=== PATIENT | male | born 1980 | race Caucasian/White ===

== ENCOUNTER 2017-08-29 15:15 | Emergency (ER) | payer BC, OTHER ==
--- OUTSIDE RECORDS SUMMARY | 2017-08-29 15:17 | XMS REPORT | Summary of Care ---
:1980 Author Name Melissa Gutierrez Address Unavailable Unavailable , Care Team Providers Name Role Phone Melissa Gutierrez Unavailable Unavailable SHANNON BAUMAN M.D. Unavailable Unavailable ANN CHRIS MD Unavailable Unavailable Unavailable Unavailable Unavailable Functional Status Name Dates Details Functional status health issues are not documented Status: Name Dates Details Cognitive status health issues are not documented Status: Problems Name Dates Details Closed posterior dislocation of right hip, initial encounter (835.01, S73.014A ) Status: Active Fracture of mandible (802.20, S02.609A) Status: Active Sprain of medial collateral ligament of right knee, initial encounter (844.1, S83.411A) Status: Active Memory problem (780.93, R41.3) Status: Active Medications Name Dates Details Gabapentin 300 MG/6ML Oral Solution Refills: 0 Start : 20-Apr-2017 Active 6 ML Cup TraMADol HCl - 50 MG Oral Tablet Refills: 0 Start : 20-Apr-2017 Active Naproxen 500 MG Oral Tablet Refills: 0 Start : 20-Apr-2017 Active MiraLax Oral Packet Refills: 0 Start : 20-Apr-2017 Active Enoxaparin Sodium 40 MG/0.4ML Subcutaneous Solution Refills: 0 Start : 20-Apr-2017 Active 0.4 ML Syringe BuPROPion HCl - 100 MG Oral Tablet Refills: 0 Active Acetaminophen-Codeine #3 300-30 MG Oral Tablet Refills: 0 Start : 16-May-2017 Active Donepezil HCl - 5 MG Oral Tablet TAKE 1 TABLET AT BEDTIME. Quantity: 60 Refills: 1 SHANNON BAUMAN M.D. Start : 16-May-2017 Active Allergies and Adverse Reactions Name Dates Details No Known Drug Allergies (Allergy) Status: Active Past Medical History Name Dates Details History of kidney stones (V13.01, Z87.442) Status: Resolved Procedures Procedure Dates Details Procedures not documented Immunization Name Dates Details Immunizations not documented Family History Name Dates Details Family history of diabetes mellitus (V18.0, Z83.3) Status: Active Family history of hypertension (V17.49, Z82.49) Status: Active Name Dates Details Family history of diabetes mellitus (V18.0, Z83.3) Status: Active Family history of hypertension (V17.49, Z82.49) Status: Active Social History Name Dates Details - Status: Name Dates Details Former smoker Never smoker Vital Signs Date Test Result Details No Known Vitals to report Results Date Description Value Details [id number] [U] XRAY PELVIS MIN 3 VWS [id number] XR PELVIS MIN 3 VWS Images acquired, not reported on this accession number. Plan of Care Name Dates Details Planned Observations Planned Goals not documented Planned Encounters Appointment; VIPIN DOSHI, PHD On: 28-Aug-2017 8:30 Appointment; CONNIE LOREDO M.D. On: 19-Oct-2017 10:00 Instructions Name Dates Details Instructions not documented Encounters Appointment; CANDIDO WARREN P.A. On: 20-Apr-2017 10:00 Encounter Diagnosis: Problem not documented Appointment; CONNIE LOREDO M.D. On: 20-Apr-2017 11:45 Encounter Diagnosis: Problem not documented Appointment; TREVA SANCHEZ M.D. On: 24-Apr-2017 10:10 Encounter Diagnosis: Problem not documented Appointment; CARRIE CARLOS M.D. On: 25-Apr-2017 14:15 Encounter Diagnosis: Problem not documented Appointment; TREVA SANCHEZ M.D. On: 01-May-2017 9:50 Encounter Diagnosis: Problem not documented Appointment; TREVA SANCHEZ M.D. On: 08-May-2017 9:50 Encounter Diagnosis: Problem not documented Appointment; TREVA SANCHEZ M.D. On: 10-May-2017 13:00 Encounter Diagnosis: Problem not documented Appointment; MARY MONAHAN M.D. On: 16-May-2017 13:00 Encounter Diagnosis: Problem not documented Appointment; CARRIE CARLOS M.D. On: 23-May-2017 9:45 Encounter Diagnosis: Problem not documented Appointment; TREVA SANCHEZ M.D. On: 29-May-2017 10:30 Encounter Diagnosis: Problem not documented Appointment; ELODIA HERNANDES PJacinta On: 01-Jun-2017 9:00 Encounter Diagnosis: Problem not documented Appointment; ELODIA HERNANDES P.A. On: 27-Jul-2017 9:00 Encounter Diagnosis: Problem not documented
[2017-08-29] MEDS ORDERED: BUPIVACAINE 0.5% PF 10 ML VIAL ONE (15:55)
[2017-08-29] MEDS ORDERED: WATER FOR INJ,STERILE 10 ML ONE (16:16)
[2017-08-29] MEDS ORDERED: CEFAZOLIN SODIUM 1 GM/VIAL ONE (16:16)
[2017-08-29] MEDS ORDERED: CEFAZOLIN/SWI 1gm 1 GM/10 ML SYR ONE (16:27)
[2017-08-29 16:34] LABS: Absolute Lymphocytes (CBC) 2.4 K/uL (0.7-4.9); Absolute Monocytes 0.6 K/uL (0.1-1.3); Absolute Neutrophil 4.8 K/uL (1.8-8.0); Basophils % 0.7 % (0-1.3); Lymphocytes % 29.6 % (15.3-44.8); MCH 29.4 pg (27.0-35.0); MCV 88.1 fL (80-100); MPV 8.6 fL (7.6-11.3); Monocytes % 6.8 % (3.3-12.3); RBC Red Blood Cell Count 4.99 M/uL (4.33-5.43)
[2017-08-29 16:43] LABS: Potassium 3.8 mEq/L (3.6-5.0)
[2017-08-29] MEDS ORDERED: FENTANYL CITR 100 MCG/2 ML ONE ×2 (16:43→18:02)
--- NOTE | 2017-08-29 16:43 | EDPHYS ---
Physician Documentation [facility] Name: Kamlesh Fitzpatrick Age: 37 yrs Sex: Male : 1980 Arrival Date: 08/29/2017 Time: 15:20 Bed 25 Private MD: ED Physician Solomon Bass HPI: 08/29 15:54 This 37 yrs old Male presents to ER via Ambulatory with complaints of Cut off jr8 tip of finger. 15:54 The patient or guardian reports injury, a laceration. The complaints affect the right jr8 finger tip. Context: The problem was sustained at home. Onset: The symptoms/episode began/occurred acutely, today. Modifying factors: The symptoms are alleviated by nothing, the symptoms are aggravated by movement. Associated signs and symptoms: The patient has no apparent associated signs or symptoms. Severity of symptoms: At their worst the symptoms were moderate, in the emergency department the symptoms are unchanged. The patient has not experienced similar symptoms in the past. The patient has not recently seen a physician. Patient stated that he was using table saw and thinks it malfunctioned. Stated that he was cutting wood and next thing he noticed was a piece of wood flying up and then his finger tip cut off. Patient came to ED soon after incident . 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 - Social history:: Smoking status: Patient/guardian denies using tobacco. ROS: 15:54 Eyes: Negative for injury, pain, redness, and discharge, ENT: Negative for injury, jr8 pain, and discharge, Neck: Negative for injury, pain, and swelling, Cardiovascular: Negative for chest pain, palpitations, and edema, Respiratory: Negative for shortness of breath, cough, wheezing, and pleuritic chest pain, Abdomen/GI: Negative for abdominal pain, nausea, vomiting, diarrhea, and constipation, Back: Negative for injury and pain, Skin: Negative for injury, rash, and discoloration, Neuro: Negative for headache, weakness, numbness, tingling, and seizure. 15:54 MS/extremity: Positive for injury or acute deformity, laceration, pain, of the right hand. Exam: 15:54 Eyes: Pupils equal round and reactive to light, extra-ocular motions intact. Lids and jr8 lashes normal. Conjunctiva and sclera are non-icteric and not injected. Cornea within normal limits. Periorbital areas with no swelling, redness, or edema. ENT: Nares patent. No nasal discharge, no septal abnormalities noted. Tympanic membranes are normal and external auditory canals are clear. Oropharynx with no redness, swelling, or masses, exudates, or evidence of obstruction, uvula midline. Mucous membranes moist. Neck: Trachea midline, no thyromegaly or masses palpated, and no cervical lymphadenopathy. Supple, full range of motion without nuchal rigidity, or vertebral point tenderness. No Meningismus. Cardiovascular: Regular rate and rhythm with a normal S1 and S2. No gallops, murmurs, or rubs. Normal PMI, no JVD. No pulse deficits. Respiratory: Lungs have equal breath sounds bilaterally, clear to auscultation and percussion. No rales, rhonchi or wheezes noted. No increased work of breathing, no retractions or nasal flaring. Abdomen/GI: Soft, non-tender, with normal bowel sounds. No distension or tympany. No guarding or rebound. No evidence of tenderness throughout. Back: No spinal tenderness. No costovertebral tenderness. Full range of motion. Skin: Warm, dry with normal turgor. Normal color with no rashes, no lesions, and no evidence of cellulitis. Neuro: Awake and alert, GCS 15, oriented to person, place, time, and situation. Cranial nerves II-XII grossly intact. Motor strength 5/5 in all extremities. Sensory grossly intact. Cerebellar exam normal. Normal gait. 15:54 Musculoskeletal/extremity: Extremities: grossly normal except: noted in the right hand: Patient has near complete amputation of distal aspect of the right index finger including nail bed. Bleeding controlled. Intact aspect of finger does have partial bone exposed along with soft tissue exposure, ROM: intact in all extremities, Circulation is intact in all extremities. Sensation intact. Vital Signs: 15:23 BP 107 / 69; Pulse 69; Resp 18; Temp 99.2; Pulse Ox 100% on R/A; Pain 8/10; hb 16:03 Weight 90.72 kg; bd 17:31 BP 133 / 84; Pulse 88; Resp 18; Pulse Ox 99% on R/A; kr2 MDM: 15:29 Patient medically screened. jr8 15:54 Data reviewed: vital signs, nurses notes, lab test result(s). Data interpreted: Pulse jr8 oximetry: on room air is 100 %. Interpretation: normal. ED course: Dr. Olivera consulted. Unavailable to help with finger injury today. Will consult [facility] to see if they will be available to help . 16:42 ED course: Dr. Pham from [facility] accepted patient . jr8 16:43 ED course: Patient up to date on Tetanus . jr8 08/29 15:54 Order name: CBC with Diff jr8 08/29 15:54 Order name: Basic Metabolic Panel jr8 08/29 16:37 Order name: CBC with Automated Diff; Complete Time: 16:43 EDMS 08/29 16:43 Order name: Basic Metabolic Panel; Complete Time: 16:47 EDMS 08/29 15:53 Order name: IV; Complete Time: 16:30 jr8 Administered Medications: 15:53 CANCELLED (Physician Discretion): Ancef 1 grams IM once jr8 16:30 Drug: Ancef 1 grams Route: IVPB; Site: left antecubital; kr2 16:45 Follow up: Response: No adverse reaction; IV Status: Completed infusion kr2 16:31 Drug: fentaNYL (PF) 75 mcg Route: IVP; Site: left antecubital; kr2 17:00 Follow up: Response: No adverse reaction; Pain is decreased kr2 17:48 Drug: fentaNYL (PF) 75 mcg Route: IVP; Site: left antecubital; kr2 17:58 Follow up: Response: No adverse reaction; Pain is decreased kr2 17:58 Drug: Zofran 4 mg Route: IVP; Site: left antecubital; kr2 17:58 Follow up: Response: No adverse reaction kr2 Disposition: 18:39 Co-signature as Attending Physician, Solomon Bass MD. rn Disposition: 08/29/17 16:43 Transfer ordered to [facility]. 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 - Reason for transfer: Higher level of care. - Accepting physician is Dr. Pham. - Condition is Stable. - Problem is new. - Symptoms have improved. Signatures: Dispatcher [employer] EDSolomon Freeman MD MD rn Roszak, Josh, PA PA jr8 Adrianna Mcdermott RN RN Mel Gonzalez RN RN kr2 Corrections: (The following items were deleted from the chart) 15:53 15:53 Ancef 1 grams IM once ordered. jr8 jr8
--- NOTE | 2017-08-29 16:43 | ER ---
Nurse's Notes [facility] Emergency Department Name: Kamlesh Fitzpatrick Age: 37 yrs Sex: Male : 1980 Arrival Date: 08/29/2017 Time: 15:20 Bed 25 Private MD: Diagnosis: Near Amputation right index finger Presentation: 08/29 15:24 Presenting complaint: Patient states: Partial amputation of right index finger with hb table saw approx 20 mins ago. Transition of care: patient was not received from another setting of care. Onset of symptoms was August 29, 2017. Care prior to arrival: None. 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 - Social history:: Smoking status: Patient/guardian denies using tobacco. Screenin:33 Abuse screen: Denies threats or abuse. Denies injuries from another. Nutritional kr2 screening: No deficits noted. Tuberculosis screening: No symptoms or risk factors identified. Fall Risk None identified. Assessment: 16:00 General: Appears in no apparent distress. uncomfortable, well developed, well kr2 nourished, Behavior is calm, cooperative, appropriate for age. Pain: Complains of pain in dorsal aspect of distal phalanx of right index finger Pain radiates to right hand Pain currently is 8 out of 10 on a pain scale. Quality of pain is described as burning, sharp, throbbing, Is continuous, Alleviated by nothing. Neuro: Level of Consciousness is awake, alert, obeys commands, Oriented to person, place, time, situation, Appropriate for age. Cardiovascular: Capillary refill < 3 seconds in bilateral fingers Patient's skin is warm and dry. Respiratory: Airway is patent Respiratory effort is even, unlabored, Respiratory pattern is regular, symmetrical. GI: Abdomen is flat, non-distended. : No signs and/or symptoms were reported regarding the genitourinary system. EENT: No signs and/or symptoms were reported regarding the EENT system. Derm: Skin is healthy with good turgor, Skin is pink, warm \T\ dry. Musculoskeletal: Amputation of distal tip of right index finger hanging by a thin strip of skin. Injury Description: Amputation. 17:32 Reassessment: Patient appears in no apparent distress at this time. Patient and/or kr2 family updated on plan of care and expected duration. Pain level reassessed. Patient is alert, oriented x 3, equal unlabored respirations, skin warm/dry/pink. Wet to dry dressing in place, small amount of bleeding. Report called to [facility] at [facility]. 17:59 Reassessment: Patient appears in no apparent distress at this time. Patient and/or kr2 family updated on plan of care and expected duration. Pain level reassessed. Patient is alert, oriented x 3, equal unlabored respirations, skin warm/dry/pink. Patient states he gets nauseated when riding in a vehicle where he can't see out . Given Zofran for ambulance ride to [facility]. Vital Signs: 15:23 BP 107 / 69; Pulse 69; Resp 18; Temp 99.2; Pulse Ox 100% on R/A; Pain 8/10; hb 16:03 Weight 90.72 kg; bd 17:31 BP 133 / 84; Pulse 88; Resp 18; Pulse Ox 99% on R/A; kr2 ED Course: 15:20 Patient arrived in ED. mr 15:25 Triage completed. hb 15:25 Arm band placed on left wrist. hb 15:29 Travis Tracy PA is PHCP. jr8 15:29 Solomon Bass MD is Attending Physician. jr8 15:53 Mel Bolton, DANIEL is Primary Nurse. kr2 16:00 Patient has correct armband on for positive identification. Placed in gown. Bed in low kr2 position. Call light in reach. Side rails up X 1. Adult w/ patient. Pulse ox on. NIBP on. 16:15 Inserted saline lock: 22 gauge in left antecubital area, using aseptic technique. Blood kr2 collected. 18:00 No provider procedures requiring assistance completed. Patient transferred, IV remains kr2 in place. Administered Medications: 15:53 CANCELLED (Physician Discretion): Ancef 1 grams IM once jr8 16:30 Drug: Ancef 1 grams Route: IVPB; Site: left antecubital; kr2 16:45 Follow up: Response: No adverse reaction; IV Status: Completed infusion kr2 16:31 Drug: fentaNYL (PF) 75 mcg Route: IVP; Site: left antecubital; kr2 17:00 Follow up: Response: No adverse reaction; Pain is decreased kr2 17:48 Drug: fentaNYL (PF) 75 mcg Route: IVP; Site: left antecubital; kr2 17:58 Follow up: Response: No adverse reaction; Pain is decreased kr2 17:58 Drug: Zofran 4 mg Route: IVP; Site: left antecubital; kr2 17:58 Follow up: Response: No adverse reaction kr2 Outcome: 16:43 ER care complete, transfer ordered by . jr8 18:01 Transferred by ground EMS to [facility], Transfer form completed. kr2 18:01 Condition: good 18:01 Patient left the ED. kr2 Signatures: Ana Maria Choudhury Maria mr Travis Tracy PA PA jr8 Adrianna Mcdermott RN RN Mel Bolton RN RN kr2 Corrections: (The following items were deleted from the chart) 15:26 15:24 Acuity: JEANNINE 3 hb hb
[2017-08-29] MEDS ORDERED: ONDANSETRON 4 MG/2 ML VIAL ONE (18:14)
== END 2017-08-29 18:01 | disposition short-term general hospital (02) ==
LOC: ER 15:15
DX: S68.620A Partial traumatic transphalangeal amputation of right index finger, initial encounter (principal); W31.2XXA Contact with powered woodworking and forming machines, initial encounter; Y93.89 Activity, other specified; Y92.009 Unspecified place in unspecified non-institutional (private) residence as the place of occurrence of the external cause
CPT/HCPCS: 36415; 80048; 85025; 96374; 96375; 99285; J0690; J2405; J3010

== ENCOUNTER 2019-02-20 23:03 | Emergency (ER) | payer BC ==
--- OUTSIDE RECORDS SUMMARY | 2019-02-20 23:09 | XMS REPORT | Continuity of Care Document ---
:1980 Author Organization [facility] Information [employer] Care Team Providers Name Role Phone [facility] Information [employer] Unavailable Unavailable Problems Problem Status Onset Classification Date Comments Source Date Reported Partial traumatic 09/08/19 12/05/2017 [facility] am[facility] of Center right index finger, initial encounter Partial traumatic 08/30/19 12/05/2017 [facility] transphalangeal 18 Medical amputation of Center right index finger, subsequent encounter RIGHT INDEX FINGER Active 08/30/[address] MANDIBLE FX Active 04/24/[address] ROSHAN BILLING Active 04/04/20 [facility] #[id number] [place] [address] MANDIBLE FX, HIP Active 04/04/20 [facility] FX [address] [place] [address] Anxiety (finding) Active Problem 12/05/2017 [facility], MELANIA Fischer Gastric ulcer Resolved Problem 12/05/2017 [facility] (disorder) Neuro,[facility] MELANIA Fischer Steatosis of liver Resolved [facility] OPID [place] 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 Neuro, (disorder) [facility] MELANIA Fischer Fracture of bone Active Problem 12/05/2017 spinal fx no brace at this time [facility] (disorder) fx jaw and ribs, dislocated hip Neuro,[facility], MELANIA Fischer Kidney stone Resolved Problem 12/05/2017 [facility] Neuralgia Active Problem 12/05/2017 right leg [facility] (disorder) Neuro,[facility] MELANIA Fischer Contact with 12/05/2017 [facility] [employer]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 nicotine Medical dependence Center FRACTURE OF ANGLE Active [facility] OF RIGHT MANDIBLE, Medical 7TH Center Medications Medication Details Route Status Patient Ordering Order Source Instructions Provider Date Acetaminophen 300 1 tab, PO, No Longer 08/30/ [facility] MG / Codeine Q6H, PRN Active 2018 Medical Phosphate 30 MG Pain, X 3 Center Oral Tablet day, # 12 [Tylenol with tab, 0 Codeine #3] Refill(s) Cephalexin 500 MG 500 mg=1 cap, No Longer [facility] Oral Capsule PO, QID, X 7 Active 2018 Medical [Keflex] day, # 28 Center cap, 0 Refill(s) Ancef + sterile 2 gm, Route: Inactive [facility] water 20 mL IVPB, ONCE, 2017 Medical Dosing Weight Center 91.818, kg, Priority: STAT, Start date: 08/29/17 23:14:00 CDT, Stop date: 08/29/17 23:14:00 CDT, ABX Indication: Bone/Joint InfectionNote s: (Same As: Ancef, Kefzol) MEDICATION WASTE Product Size: 1000 mg Product Wasted: ___ mg Ancef 1 gm, Route: Inactive [facility] IVPB, ONCE, 2017 Medical Dosing Weight Center 91.818, kg, Priority: STAT, Start date: 08/29/17 23:14:00 CDT, Stop date: 08/29/17 23:14:00 CDT, ABX Indication: Bone/Joint Infection Lidocaine 100 mg, 10 No Longer [facility] Hydrochloride 10 mL, Route: Active 2017 Medical MG/ML Injectable INTRADERM, [place] Solution Drug Form: INJ, Dosing Weight 91.818, kg, ONCE, STAT, Start date: 08/29/17 20:59:00 CDT, Stop date: 08/29/17 20:59:00 CDTNotes: (Same as: Xylocaine) Ancef 1 gm, Route: Inactive [facility] IVPB, ONCE, 2017 Medical Dosing Weight Center 91.818, kg, Priority: STAT, Start date: 08/29/17 19:42:00 CDT, Stop date: 08/29/17 19:42:00 CDT, ABX Indication: Bone/Joint Infection Acetaminophen 325 1 tab, Route: Inactive [facility] MG / Hydrocodone PO, Drug 2018 Medical Bitartrate 5 MG Form: TAB, Center Oral Tablet Dosing Weight 91.818, kg, ONCE, STAT, Start date: 08/29/17 19:29:00 CDT, Stop date: 08/29/17 19:29:00 CDT propofol (ANES) Route: IV, Inactive [facility] Drug form: 2017 Medical INJ, ONCE, Center Stop date: 05/10/17 12:21:00 SILK BLOCKER fentaNYL (ANES) Route: IV, Inactive [facility] Drug form: 2017 Medical INJ, ONCE, Center Stop date: 05/10/17 12:21:00 SILK BLOCKER midazolam (ANES) Route: IV, Inactive [facility] Drug form: 2017 Medical SOLN, ONCE, Center Stop date: 05/10/17 12:21:00 SILK BLOCKER lidocaine (ANES) Route: IV, Inactive [facility] Drug form: 2017 Medical INJ, ONCE, Center Stop date: 05/10/17 12:21:00 SILK BLOCKER Lactated Ringers Route: IV, Inactive [facility] Injection IV Total Volume: 2017 Medical (ANES) 1000 mL 1,000, Start Center date: 05/10/17 11:35:00 SILK BLOCKER, Stop date: 05/10/17 12:35:00 SILK BLOCKER Tramadol 50 mg, PO, Active [place] Q4-6H, PRN 2017 Medical Pain, # 20 Center tab, 0 Refill(s) Peridex 0.12% 0.018 gm=15 Active [facility] topical liquid mL, S&SPIT, 2017 Medical TID, # 450 Center mL, 0 Refill(s) buPROPion 100 mg 100 mg=1 tab, Active [facility] oral tablet PO, Q8H, 2017 Medical crush, # 90 Center tab, 0 Refill(s) enoxaparin 40 40 mg=0.4 mL, Active [place] mg/0.4 mL SUB-Q, Q12H, 2017 Medical subcutaneous X 16 day, # Center solution 32 ea, 0 Refill(s) tramadol 50 mg 50 mg=1 tab, Active [place] oral tablet PO, Q6H, PRN 2017 Medical Pain Score Center 4-6, not to exceed 400 mg/day, crush, X 7 day, # 28 tab, 0 Refill(s) gabapentin 250 300 mg=6 mL, Active [place] mg/5 mL oral PO, Q8Hnow, 2017 Medical solution if liquid Center unavailable please change to tabs 300 mg q8h and crush them, # 540 mL, 0 Refill(s) docusate sodium 100 mg=10 mL, Active [place] 150 mg/15 mL oral PO, Q12H, 2017 Medical liquid with plenty Center of water, # 140 mL, 0 Refill(s) naproxen 500 mg 500 mg=1 tab, Active [facility] oral tablet NG, Q12H, PRN 2017 Medical Pain 1-3/Temp Center > 100.4 F, with food, crush, X 7 day, # 14 tab, 0 Refill(s) polyethylene 17 gm, PO, Active [facility] glycol 3350 oral Q12H, 2017 Medical powder for dissolve in Center reconstitution water or juice, hold for diarrhea, X 7 day, # 12 ea, 0 Refill(s) oxyCODONE 5 mg/5 5 mg=5 mL, Active [place] mL oral solution PO, Q4H, PRN 2017 Medical Pain Score Center 4-6, X 7 day, # 210 mL, 0 Refill(s) Peridex 0.12% 15 ml, Route: No Longer [facility] topical liquid S&SPIT, TID, Active 2016 Medical Drug form: [place] LIQ, Start date: 04/14/17 9:00:00 CDT, Duration: 30 day, Stop date: 05/13/17 17:00:00 CSTNotes: (Same As: Peridex) gabapentin 300 mg, 6 mL, No Longer [place] Route: PO, Active 2016 Medical Drug form: [place] SOLN, Q8Hnow, Dosing Weight 106.818, kg, Start date: 04/14/17 3:00:00 CDT, Stop date: 05/13/17 19:00:00 CSTNotes: (Same as: Neurontin) oxyCODONE 5 mg/5 5 mg, 5 mL, No Longer [place] mL oral solution Route: PO, Active 2016 Medical Drug form: [place] LIQ, Q4H, Dosing Weight 106.818, kg, PRN Pain Score 4-6, Start date: 04/14/17 2:50:00 CDT, Stop date: 05/14/17 2:49:00 CSTNotes: (Same as: 'Roxicodone) tramadol 50 mg, 1 tab, No Longer [place] Route: PO, Active 2016 Medical Drug form: Center TAB, Q6H, Dosing Weight 106.818, kg, PRN Pain Score 4-6, Start date: 04/14/17 2:50:00 CDT, Duration: 30 day, Stop date: 05/14/17 2:49:00 CSTNotes: Not to exceed 400mg/day. (Same As: Ultram) Naprosyn 500 mg, 1 No Longer [place] tab, Route: Active 2016 [facility], Drug Center form: TAB, Q12H, PRN Pain 1-3/Temp > 100.4 F, Start date: 04/13/17 8:39:00 CDT, Duration: 30 day, Stop date: 05/13/17 8:38:00 CSTNotes: (Same as: Naprosyn) Take with food. Roxicodone 5 mg, 1 tab, No Longer [place] Route: NG, Active 2016 Medical Drug form: Center TAB, Q4H, PRN Pain Score 6-10, Start date: 04/12/17 9:22:00 CDT, Duration: 30 day, Stop date: 05/12/17 9:21:00 CSTNotes: (Same as: Roxicodone) oxyCODONE 5 mg/5 5 mg, 5 mL, Inactive [place] mL oral solution Route: PO, 2017 Medical Q4H, Dosing Center Weight 85, kg, PRN Pain Score 1-5, Start date: 04/12/17 9:17:00 CDT, Duration: 30 day, Stop date: 05/12/17 9:16:00 SILK BLOCKER [place] Glycerin 1 supp, No Longer [place] Suppositories Route: VA, Active 2016 Medical Adult Dosing Weight Center 85, kg, Daily, Start date: 04/12/17 9:00:00 CDT, Duration: 30 day, Stop date: 05/11/17 9:00:00 SILK BLOCKER Dulcolax Laxative 10 mg, 1 No Longer [place] supp, Route: Active [facility] form: SUPP, Daily, Start date: 04/11/17 10:00:00 CDT, Duration: 30 day, Stop date: 05/11/17 9:00:00 CSTNotes: (Same As: Dulcolax, Bisco-Lax) famotidine 20 mg 20 mg, 1 tab, Inactive [place] oral tablet Route: PO, 2016 Medical Drug form: [place] TAB, Q12H, Dosing Weight 85, kg, Start date: 04/11/17 9:00:00 CDT, Duration: 30 day, Stop date: 05/10/17 21:00:00 CSTNotes: (Same as: Pepcid) Zofran 4 mg, Route: No Longer [place] IV, ONCE, Active 2016 Medical Dosing Weight Center 85, kg, Start date: 04/10/17 23:58:00 CDT, Stop date: 04/10/17 23:58:00 CDT famotidine 20 mg, 2 mL, No Longer [place] Route: IVPB, Active 2016 Medical Drug form: Center INJ, Q12H, Dosing Weight 85, kg, Start date: 04/10/17 21:00:00 CDT, Duration: 30 day, Stop date: 05/10/17 9:00:00 CSTNotes: (Same as: Pepcid) Can be dilute in 5-10cc NS IVP: Slow IV push over at least 2 minutes. chlorhexidine 15 mL, Route: No Longer [place] topical 0.12% Swab Mouth, Active 2016 Medical liquid Q12H, Drug Center form: LIQ, Start date: 04/10/17 21:00:00 CDT, Duration: 30 day, Stop date: 05/10/17 9:00:00 CSTNotes: (Same As: Peridex) ocular lubricant 1 appl, No Longer [place] Route: BOTH Active 2016 Medical EYES, Q6H, [place] Drug form: OINT, Start date: 04/10/17 18:00:00 CDT, Duration: 30 day, Stop date: 05/10/17 12:00:00 CSTNotes: (Same as: Lacri-Lube, Duratears Naturale, Artificial Tears, and Tears Again ) ondansetron Route: IV, Inactive [facility] (ANES) Drug form: 2016 Medical INJ, ONCE, Center Stop date: 04/10/17 17:12:00 CDT chlorhexidine 15 mL, Route: No Longer [facility] topical 0.12% Swab Mouth, Active 2016 Medical liquid PRN, Drug Center form: LIQ, PRN Other -See Comment, Start date: 04/10/17 16:55:00 CDT, Duration: 30 day, Stop date: 05/10/17 15:54:00 CSTNotes: (Same As: Peridex) propofol INJ 1,000 mg, 100 No Longer [facility] 1,000 mg mL, Rate: Active 2016 [facility] Titrate, Happy [place] Start Dose: 5 microgram/kg/ min, Titration: 5 microgram/kg/ min every 15 min, Goal(s): MAP >65, Max Dose: 50 microgram/kg/ min, Route: IV, Dosing Weight 85 kg, Total Volume: 100, Start date: 04/10/17 16:52:00 CDT, Duratio...Not es: If Diprivan - change bottle & tubing every 12 hr Per state nursing law propofol can only be given by a nurse if patient is intubated or being intubated (unless the nurse is a TUBE BUILDER). Same as: Diprivan acetaminophen Route: IV, Inactive [facility] (ANES) Drug form: 2016 Medical INJ, ONCE, Center Stop date: 04/10/17 16:16:00 CDT albuterol (ANES) Route: Inactive [facility] INHALATION, 2016 Medical Drug form: [place] AERO/A, ONCE, Stop date: 04/10/17 14:34:00 CDT phenylephrine Route: IV, Inactive [facility] (ANES) Drug form: 2017 Medical INJ, ONCE, Center Stop date: 04/10/17 14:24:00 CDT dexamethasone Route: IV, Inactive [facility] (ANES) Drug form: 2017 Medical INJ, ONCE, Center Stop date: 04/10/17 14:04:00 CDT fentaNYL (ANE) Route: IV, Inactive [facility] Drug form: 2017 Medical INJ, ONCE, Center Stop date: 04/10/17 14:04:00 CDT rocuronium (ANES) Route: IV, Inactive [facility] Drug form: 2017 Medical INJ, ONCE, Center Stop date: 04/10/17 14:04:00 CDT propofol (ANES) Route: IV, Inactive [facility] Drug form: 2017 Medical INJ, ONCE, Center Stop date: 04/10/17 14:04:00 CDT lidocaine (ANES) Route: IV, Inactive [facility] Drug form: 2017 Medical INJ, ONCE, Center Stop date: 04/10/17 14:04:00 CDT clindamycin Route: IV, Inactive [facility] (ANES) Drug form: 2017 Medical INJ, ONCE, Center Stop date: 04/10/17 13:46:00 CDT nafcillin (ANES) Route: IV, Inactive [facility] Drug form: 2017 Medical INJ, ONCE, Center Stop date: 04/10/17 13:46:00 CDT midazolam (ANES) Route: IV, Inactive [facility] Drug form: 2017 Medical SOLN, ONCE, Center Stop date: 04/10/17 13:42:00 CDT dexmedetomidine Route: IV, Inactive [facility] (ANES) (ANES) Drug form: 2016 Medical INJ, Start Center date: 04/10/17 12:43:00 CDT, Stop date: 04/10/17 13:43:00 CDT LR 1000 mL INJ Route: IV, Inactive [facility] (ANES) Total Volume: 2016 Medical 1,000, Start Center date: 04/10/17 12:15:00 CDT, Stop date: 04/10/17 13:15:00 CDT methadone 5 mg, 1 tab, No Longer [place] Route: PO, Active 2016 Medical Drug form: Center TAB, Q8Hnow, Dosing Weight 85, kg, Start date: 04/09/17 17:13:00 CDT, Duration: 30 day, Stop date: 05/09/17 9:13:00 CSTNotes: (Same as: Dolophine) oxyCODONE 5 mg 5 mg, 1 tab, No Longer [place] oral tablet Route: PO, Active 2016 Medical Drug form: Center TAB, Q4H, kg, PRN Pain Score 7-10, , Start date: 04/09/17 17:12:00 CDT, Duration: 30 day, Stop date: 05/09/17 17:11:00 CSTNotes: (Same as: Roxicodone) nafcillin 1 gm, Route: Inactive [place] IVPB, Q4H, 2016 Medical Dosing Weight Center 85, kg, Start date: 04/09/17 12:00:00 CDT, Duration: 3 day, Stop date: 04/12/17 8:00:00 CDT nafcillin 1 gm, Route: No Longer [facility] IVPB, Drug Active 2016 Medical form: Center PDR/INJ, Q4H, Dosing Weight 85, kg, Priority: STAT, Start date: 04/09/17 10:37:00 CDT, Duration: 4 day, Stop date: 04/13/17 8:00:00 CDT melatonin 3 mg 3 mg, 1 tab, No Longer [place] oral tablet Route: PO, Active 2016 Medical Drug Form: [place] TAB, Dosing Weight 85, kg, Bedtime, STAT, Start date: 04/08/17 22:58:00 CDT, Duration: 30 day, Stop date: 05/08/17 21:00:00 CSTNotes: (Same as: Melatonin) levofloxacin 750 mg, 1 No Longer [facility] tab, Route: Active 2017 Medical PO, Drug Center form: TAB, [id number], Dosing Weight 85, kg, For CrCl > 49ml/min, Start date: 04/08/17 11:00:00 CDT, Duration: 7 day, Stop date: 04/14/17 11:00:00 CDT, ABX Indication: PneumoniaNote s: Do not give w/antacids, dairy pdt & minerals Take 1 hr before or 2 hr after dairy products nafcillin 1 gm, Route: Inactive [place] IVPB, Q4H, 2017 Medical Dosing Weight Center 85, kg, Priority: NOW, Start date: 04/08/17 8:41:00 CDT, Duration: 30 day, Stop date: 05/08/17 8:00:00 SILK BLOCKER tramadol 100 mg, 2 Inactive [place] tab, Route: 2017 Medical , Drug Center form: TAB, Q6H, Dosing Weight 85, kg, Start date: 04/07/17 12:00:00 CDT, Duration: 30 day, Stop date: 05/07/17 6:00:00 CSTNotes: Not to exceed 400mg/day. (Same As: Ultram) buPROPion 100 mg, 1 No Longer [place] tab, Route: Active 2016 [facility], Drug Center form: TAB, Q8H, Dosing Weight 85, kg, Start date: 04/07/17 10:09:00 CDT, Duration: 30 day, Stop date: 05/07/17 8:00:00 CSTNotes: (Same As: Wellbutrin) buPROPion 300 mg, Inactive [place] Route: PO, 2016 Medical Drug form: [place] ERTAB, Daily, Dosing Weight 85, kg, Start date: 04/07/17 9:49:00 CDT, Duration: 30 day, Stop date: 05/07/17 9:00:00 SILK BLOCKER citalopram 20 mg, 1 tab, No Longer [place] Route: NG, Active 2016 Medical Drug form: [place] TAB, Daily, Dosing Weight 85, kg, Start date: 04/07/17 9:49:00 CDT, Duration: 30 day, Stop date: 05/07/17 9:00:00 CSTNotes: (Same As: CeleXA) buPROPion 300 0 Refill(s) No Longer [place] mg/24 hours (XL) Active 2016 Medical oral tablet, [place] extended release citalopram 20 mg 0 Refill(s) Active [place] oral tablet 2017 Medical [place] bisacodyl 10 mg, 1 Inactive [place] supp, Route: 2017 [facility] form: SUPP, ONCE, Dosing Weight 85, kg, Start date: 04/07/17 9:22:00 CDT, Stop date: 04/07/17 9:22:00 CDTNotes: (Same As: Dulcolax, Bisco-Lax) vancomycin 1,500 mg, 250 No Longer [place] mL, Route: Active 2016 [facility] IVPB, Drug Center form: INJ, ABXQ6H, Dosing Weight 85, kg, Priority: STAT, Start date: 04/07/17 1:27:00 CDT, Duration: 7 day, Stop date: 04/13/17 20:00:00 CDT, ABX Indication: PneumoniaNote s: TIME CRITICAL MEDICATION Same as: Vancocin-NS (premixed) Infusion rate 2001 mg: infuse over 2.5 hours Naprosyn 500 mg, 1 No Longer [facility] tab, Route: Active 2016 [facility], Drug Center form: TAB, Q12H, Start date: 04/06/17 21:00:00 CDT, Duration: 30 day, Stop date: 05/06/17 9:00:00 CSTNotes: (Same as: Naprosyn) Take with food. vancomycin 2 gm, 500 mL, Inactive [place] Route: IV, 2016 Medical Drug form: Center SOLN, ONCE, Dosing Weight 85, kg, Priority: STAT, Start date: 04/06/17 18:04:00 CDT, Stop date: 04/06/17 18:04:00 CDT, ABX Indication: PneumoniaNote s: TIME CRITICAL MEDICATION Same as: Vancocin Infusion rate 2001 mg: infuse over 2.5 hours cefepime 1 gm, Route: No Longer [facility] IV, Drug Active 2016 Medical form: INJ, Center ABXQ6H, Dosing Weight 85, kg, Priority: STAT, Start date: 04/06/17 18:04:00 CDT, Duration: 7 day, Stop date: 04/13/17 12:04:00 CDT, ABX Indication: PneumoniaNote s: (Same As: Maxipime) MEDICATION WASTE Product Size: 1000 mg Product Wasted: ___ mg Neurontin 300 mg, 1 No Longer [facility] cap, Route: Active 2016 [facility], Drug Center form: CAP, Q8H, Start date: 04/06/17 16:00:00 CDT, Duration: 30 day, Stop date: 05/06/17 8:00:00 CSTNotes: (Same as: Neurontin) Versed 5 mg, 5 mL, Inactive [facility] Route: IVP, 2017 Medical Drug form: Center INJ, ONCALL, Dosing Weight 85, kg, Start date: 04/06/17 15:00:00 CDT, Duration: 1 day, Stop date: 04/07/17 14:59:00 CDTNotes: (Same as: Versed) MEDICATION WASTE Product Size: 5 mg Product Wasted: ___ mg fentaNYL 50 microgram, Inactive [facility] Route: IV, 2017 Medical ONCE, Dosing Center Weight 85, kg, Start date: 04/06/17 14:39:00 CDT, Stop date: 04/06/17 14:39:00 CDT midazolam 5 mg, Route: Inactive [facility] IV, ONCE, 2017 Medical Dosing Weight Center 85, kg, Priority: STAT, Start date: 04/06/17 14:23:00 CDT, Stop date: 04/06/17 14:23:00 CDT rocuronium 100 mg, 10 Inactive [facility] mL, Route: 2017 Medical IV, Drug Center form: INJ, ONCE, Dosing Weight 85, kg, Start date: 04/06/17 14:02:00 CDT, Stop date: 04/06/17 14:02:00 CDTNotes: (Same as: Zemeron) Omnipaque 70 mL, Route: Inactive [place] 350mg/ml IVP, Drug 2017 Medical Form: SOLN, Center Dosing Weight 85, kg, ONCALL, STAT, Start date: 04/06/17 11:32:00 CDT, Duration: 1 doses or times, Dose=2.2ml/kg , Max xzas=[id number] -- "To be infused by Radiology Staff ONLY" chlorhexidine 15 mL, Route: Inactive [facility] topical 0.12% Swab Mouth, 2017 Medical liquid Q12H, Drug Center form: LIQ, Start date: 04/06/17 9:00:00 CDT, Duration: 30 day, Stop date: 05/05/17 21:00:00 CSTNotes: (Same As: Peridex) ocular lubricant 1 appl, Inactive [place] Route: BOTH 2017 Medical EYES, Q6H, Center Drug form: OINT, Start date: 04/06/17 6:00:00 CDT, Duration: 30 day, Stop date: 05/06/17 0:00:00 CSTNotes: (Same as: Lacri-Lube, Duratears Naturale, Artificial Tears, and Tears Again ) fentaNYL 1,000 Inactive [place] 1000microgram/20m microgram, 20 2016 Medical l drip (pyxis) mL, Rate: Center 1,000 microgram Titrate, Start Dose: 50 microgram/hr, Titration: 25 microgram/kristen r every 15 minutes, Goal(s): -3, Max Dose: 300 microgram/hr, Route: IV, Dosing Weight 85 kg, Total Volume: 20, Start date: 04/06/17 0:43:00 CDT, Duration: 3... propofol INJ 1,000 mg, 100 No Longer [place] 1,000 mg mL, Rate: Active 2016 [facility] Titrate, [place] Start Dose: 5 microgram/kg/ min, Titration: 5 microgram/kg/ min every 15 min, Goal(s): -3, Max Dose: 50 microgram/kg/ min, Route: IV, Dosing Weight 85 kg, Total Volume: 100, Start date: 04/06/17 0:43:00 CDT, Duration: 30...Notes: If Diprivan - change bottle & tubing every 12 hr Per state nursing law propofol can only be given by a nurse if patient is intubated or being intubated (unless the nurse is a TUBE BUILDER). Same as: Diprivan chlorhexidine 15 mL, Route: Inactive [place] topical 0.12% Swab Mouth, 2016 Medical liquid PRN, Drug Center form: LIQ, PRN Other -See Comment, Start date: 04/06/17 0:42:00 CDT, Duration: 30 day, Stop date: 05/05/17 23:41:00 CSTNotes: (Same As: Peridex) famotidine 20 mg 20 mg, 1 tab, No Longer [place] oral tablet Route: NG, Active 2016 Medical Drug form: [place] TAB, Q12H, Dosing Weight 85, kg, Start date: 04/05/17 21:00:00 CDT, Duration: 30 day, Stop date: 05/05/17 9:00:00 CSTNotes: (Same as: Pepcid) senna 17.2 mg, 2 No Longer [facility] tab, Route: Active 2016 Medical NG, Drug Center Form: TAB, kg, Q12H, Start date: 04/05/17 21:00:00 CDT, Duration: 30 day, Stop date: 05/05/17 9:00:00 CSTNotes: (Same as: Senokot) CeleBREX 200 mg, 1 No Longer [facility] cap, Route: Active 2016 Medical , Drug Center form: CAP, Q12H, kg, Start date: 04/05/17 21:00:00 CDT, Stop date: 04/06/17 12:00:00 CDTNotes: NSAID. Please check indication. Not for seizure. (Same As: CeleBREX) PHOS-NaK 2 pkt, Route: No Longer [facility] NG, Drug Active 2016 Medical Form: [place] PDR/REC, Dosing Weight 85, kg, Q8H, Start date: 04/05/17 16:00:00 CDT, Duration: 30 day, Stop date: 05/05/17 8:00:00 CSTNotes: (Same as: Phos-NaK) Each 1.5 gm pkt has 250mg phosphorous. Mix w/2.5oz water and stir. Lovenox 40 mg, 0.4 No Longer [facility] mL, Route: Active 2016 Medical SUB-Q, Drug Center form: INJ, Q12H, Dosing Weight 85, kg, Priority: STAT, Start date: 04/05/17 15:33:00 CDT, Stop date: 05/05/17 4:00:00 CSTNotes: (Same as: Lovenox) Peridex 0.12% 15 ml, Route: No Longer [facility] topical liquid S&SPIT, Q8H, Active 2016 Medical Drug form: [place] LIQ, Start date: 04/05/17 13:00:00 CDT, Stop date: 05/05/17 8:00:00 CSTNotes: (Same As: Peridex) ocular lubricant 1 appl, No Longer [facility] Route: BOTH Active 2017 Medical EYES, Q6H, [place] Drug form: OINT, Start date: 04/05/17 12:00:00 CDT, Duration: 30 day, Stop date: 05/05/17 6:00:00 CSTNotes: (Same as: Lacri-Lube, Duratears Naturale, Artificial Tears, and Tears Again ) Roxicodone 5 mg, 1 tab, No Longer [place] Route: NG, Active 2016 Medical Drug form: [place] TAB, Q6H, Start date: 04/05/17 12:00:00 CDT, Duration: 30 day, Stop date: 05/05/17 6:00:00 CSTNotes: (Same as: Roxicodone) clindamycin 900 mg, 6 mL, Inactive [place] Route: IV, 2016 Medical Drug form: [place] INJ, ABXQ8H, Dosing Weight 85, kg, Start date: 04/05/17 10:00:00 CDT, Duration: 30 day, Stop date: 05/05/17 2:00:00 SILK BLOCKER, ABX Indication: Open Wound ProphylaxisNo hailey: (Same As: Cleocin) Isolyte S (PH 1,000 mL, No Longer [place] 7.4) 1000 mL Rate: 70 Active 2017 Medical 1,000 mL ml/hr, Infuse Center over: 14.3 hr, Route: IV, Dosing Weight 85 kg, Total Volume: 1,000, Start date: 04/05/17 9:54:00 CDT, Duration: 30 day, Stop date: 05/05/17 9:53:00 CSTNotes: (Same as: Isolyte S PH 7.4) oxyCODONE 5 mg/5 5 mg, 5 mL, Inactive [facility] mL oral solution Route: PO, 2017 Medical Q6H, Dosing Center Weight 85, kg, Start date: 04/05/17 9:50:00 CDT, Duration: 30 day, Stop date: 05/05/17 6:00:00 SILK BLOCKER MiraLax 17 gm, 1 pkt, Inactive [facility] Route: PO, 2017 Medical Drug form: Center PWDR, Daily, kg, Start date: 04/05/17 9:00:00 CDT, Duration: 30 day, Stop date: 05/04/17 9:00:00 CSTNotes: Dissolve in 8 oz of water or juice. (Same as: Miralax) docusate 100 mg, 1 Inactive [facility] cap, Route: 2016 Medical PO, Drug Center form: CAP, Daily, kg, Start date: 04/05/17 9:00:00 CDT, Duration: 30 day, Stop date: 05/04/17 9:00:00 CSTNotes: (Same as: Colace) (Do Not Crush) senna 17.2 mg, 2 Inactive 04/05[facility] tab, Route: 2016 Medical PO, Drug Center Form: TAB, kg, BID, Start date: 04/05/17 9:00:00 CDT, Duration: 30 day, Stop date: 05/04/17 17:00:00 CSTNotes: (Same as: Senokot) gabapentin 300 mg 300 mg, 1 Inactive 04/05[facility] oral capsule cap, Route: 2016 Medical PO, Drug Center form: CAP, TID, kg, Start date: 04/05/17 9:00:00 CDT, Duration: 30 day, Stop date: 05/04/17 17:00:00 CSTNotes: (Same as: Neurontin) CeleBREX 200 mg, [address] [place] [address] cap, Route: 2016 Medical PO, Drug Center form: CAP, BID, kg, Start date: 04/05/17 9:00:00 CDT, Duration: 30 day, Stop date: 05/04/17 17:00:00 CSTNotes: NSAID. Please check indication. Not for seizure. (Same As: CeleBREX) chlorhexidine 15 mL, Route: No Longer 04/05[facility] topical 0.12% Swab Mouth, Active 2016 Medical liquid Q12H, Drug Center form: LIQ, Start date: 04/05/17 9:00:00 CDT, Duration: 30 day, Stop date: 05/04/17 21:00:00 CSTNotes: (Same As: Peridex) famotidine 20 mg, 2 mL, Inactive 04/05[facility] Route: IVPB, 2016 Medical Drug form: Center INJ, Q12H, Dosing Weight 85, kg, Start date: 04/05/17 9:00:00 CDT, Duration: 30 day, Stop date: 05/04/17 21:00:00 CSTNotes: (Same as: Pepcid) chlorhexidine 15 mL, Route: No Longer [place] topical 0.12% Swab Mouth, Active 2016 Medical liquid PRN, Drug Center form: LIQ, PRN Other -See Comment, Start date: 04/05/17 6:12:00 CDT, Duration: 30 day, Stop date: 05/05/17 5:11:00 CSTNotes: (Same As: Peridex) Insulin regular 12 unit, 0.12 No Longer [place] mL, Route: Active 2016 Medical SUB-Q, Drug Center form: SOLN, PRN, Dosing Weight 85, kg, PRN Abnormal Lab Result, Start date: 04/05/17 6:12:00 CDT, Duration: 30 day, Stop date: 05/05/17 5:11:00 SILK BLOCKER, For FSBG >=200 mg/dLNotes: (Same as: Humulin R) Roll in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 bilateral false profile views of the pelvis FINDINGS: There is maintained alignment of the right hip, status post reduction. No acute fracture or malalignment is identified. No pubic symphysis or sacroiliac joint diastasis. A thermistor is noted. The soft tissues are unremarkable. IMPRESSION: Maintained alignment of the right hip, status post reduction. Ankle 3 views DX EXAM: XR RIGHT ANKLE 3 VIEWS 04/12/2017 [facility] DATE: 04/12/2017 at 1247 hours. Center INDICATION: Medial pain and swelling. COMPARISON: Right ankle radiograph on 04/04/2017. TECHNIQUE: AP, oblique and lateral radiographs of the right ankle. UT SECTION: MSK FINDINGS: No acute fracture or malalignment is identified. The ankle mortise is congruent. Asymmetric soft tissue swelling is again seen about the medial ankle. No radiopaque foreign body is detected. IMPRESSION: 1. No acute fracture or malalignment of the right ankle. 2. Asymmetric medial soft tissue swelling is overall similar to 04/04/2017 and can be further evaluated with an ankle MRI to evaluate for ligamentous injury if clinically warranted. Abdomen AP DX EXAM: XR ABDOMEN 1 VIEW 04/11/2017 [facility] DATE: 04/11/2017 1:57 PM [facility] Center INDICATION: - NG tube COMPARISON: 04/11/2017, 1006 hours TECHNIQUE: Limited AP view of the abdomen for tube placement assessment. Number of images: 1 FINDINGS: Transesophageal feeding tube: None Transesophageal suction tube sidehole in the distal body region of the stomach. Other tubes and lines: None. No other changes. IMPRESSION: Tube positions as above. Abdomen 1 v for EXAM: XR ABDOMEN 1 VIEW 04/11/2017 [facility] Placement DX DATE: 04/11/2017 9:48 AM [facility] Center INDICATION: - Tube placement COMPARISON: 04/10/2017 TECHNIQUE: Limited AP view of the abdomen for tube placement assessment. Number of images: 1 FINDINGS: Transesophageal feeding tube: None. Transesophageal suction tube has been advanced and the sidehole in the pyloric antrum region and the tip in the proximal duodenum. Other tubes and lines: None. No other changes. IMPRESSION: Tube positions as above. Chest 1view DX EXAM: XR CHEST 1 VIEW 04/11/2017 [facility] DATE: 04/11/2017 0039 hours Center INDICATION: - Dyspnea, Hypoxia COMPARISON: X-ray chest 1 view 04/10/2017; CT chest, abdomen and pelvis with contrast 04/04/2017. TECHNIQUE: AP chest FINDINGS: Lines, tubes and hardware: Endotracheal tube tip projects approximately 3.6 cm proximal to the peter. The enteric tube extends inferiorly out of the field- of-view of the exam. Lungs and pleura: The lungs are hypoinflated with associated pulmonary vascular crowding. Hazy bilateral retrocardiac opacification has not significantly changed. Patchy opacities in the right upper and mid lung zones have slightly increased. The left costophrenic sulcus is blunted. No definite pneumothorax is identified given limitations of semierect positioning. Heart and mediastinum: The cardiomediastinal silhouette is stable. Bones: Previously described left-sided rib fractures and T4 compression fracture on the comparison CT chest abdomen and pelvis are not well delineated on the current study. IMPRESSION: 1. Persistent bilateral hazy retrocardiac opacification which may represent subsegmental atelectasis, consolidation or pleural fluid. 2. Mild interval increase in patchy opacities in the right upper and mid lung zones concerning for consolidation/infection. 3. Low lung volumes with pulmonary vascular crowding. 4. Small left pleural effusion. Chest 1view DX EXAM: XR CHEST 1 VIEW 04/10/2017 [facility] DATE: 04/10/2017 at 1720 hours Center INDICATION: - nasally intubated; ET tube placement COMPARISON: 04/10/2017 at 0031 hours TECHNIQUE: AP chest FINDINGS: Lines, tubes and hardware: * Interval intubation with endotracheal tube tip projecting 2.4 cm above the peter * Gastric suction tube passes below the diaphragm Lungs and pleura: Low lung volumes are present, with bibasilar subsegmental atelectasis. Scattered airspace opacities are present bilaterally. No pneumothorax is identified on this semiupright radiograph. Pulmonary vascularity is normal. Heart and mediastinum: The heart size is prominent, but accentuated by low lung volumes and AP technique, and not significantly changed. The mediastinal contours are normal. IMPRESSION: 1. Interval intubation, with endotracheal tube tip projecting 2.4 cm above the peter. Gastric suction tube passes below the diaphragm. 2. Persistent bilateral airspace opacities, right greater than left, representing atelectasis or pneumonia. Abdomen AP DX EXAM: XR ABDOMEN 1 VIEW 04/10/2017 [facility] DATE: 04/10/2017 at 1714 hours Center INDICATION: NG tube placement ADDITIONAL INFORMATION: None. COMPARISON: 04/05/2017. TECHNIQUE: Limited AP view of the abdomen for tube placement assessment. Number of images: 2 FINDINGS: Gastric suction tube tip and side-port overlie the gastric body on the second image. Mildly prominent, air-filled loops of small bowel are present in the midabdomen. Refer to the dedicated chest radiograph for chest findings. IMPRESSION: 1. NG tube tip and side-port overlie the stomach on the second image. 2. Mildly prominent, air-filled loops of small bowel in the midabdomen Chest 1view DX EXAM: XR CHEST 1 VIEW 04/10/2017 [facility] DATE: 04/10/2017 3:00 AM T Center INDICATION: Dyspnea, Hypoxia - Dyspnea, Hypoxia COMPARISON: Chest x-ray April 09, 2017 TECHNIQUE: AP chest FINDINGS: Lines, tubes and hardware: The enteric tube is been removed. A brace is noted over the thoracic and cervical spine. Lungs and pleura: The lung volumes are low with associated bronchovascular crowding. There are bilateral, stable retrocardiac opacities. Opacities in the right midlung are stable. The left costophrenic sulcus is blunted. Pulmonary vascularity is normal. Heart and mediastinum: The cardiomediastinal silhouette is unchanged. The mediastinal contours are unchanged. Bones: No acute bony abnormality is identified. IMPRESSION: No significant interval change; 1. Stable bilateral retrocardiac opacities 2. Stable opacification in the right midlung. 3. Small left pleural effusion. Chest 1view DX EXAM: XR CHEST 1 VIEW 04/09/2017 [facility] DATE: 04/09/2017 3:00 AM T Center INDICATION: Dyspnea, Hypoxia - Dyspnea, Hypoxia COMPARISON: Semierect AP chest radiograph 04/08/2017 TECHNIQUE: AP chest, supine FINDINGS: Lines, tubes and hardware: The patient has been extubated. Enteric suction tube is unchanged. Lungs and pleura: Low lung volumes are present. There are airspace opacities throughout the right lung and opacity in the left retrocardiac space are unchanged. These opacities may represent any combination of atelectasis and pneumonia. Heart and mediastinum: The heart size is normal for technique. Bones: No change from prior exam. IMPRESSION: No change from the prior exam. Spine thoracic 2 EXAM: XR THORACIC SPINE 2 VIEWS 04/08/2017 [facility] views DX DATE: 04/08/2017 9:40 AM T Center INDICATION: - Upright COMPARISON: CT chest, abdomen pelvis from 04/04/2017. TECHNIQUE: AP and lateral radiographs of the thoracic spine FINDINGS: T4 superior endplate compression fracture is better evaluated on the prior CT scan. Remaining vertebral body heights, disk heights and alignment are preserved. No new fracture seen. No significant degenerative disk disease or osteoarthritis. No soft tissue abnormality is identified. A nasogastric tube is noted with its tip overlying the stomach. IMPRESSION: Superior endplate compression fracture of T4 is better evaluated on prior CT scan. Spine cervical 2 or 3 EXAM: XR CERVICAL SPINE 4 VIEWS 04/08/2017 [facility] view DX DATE: 04/08/2017 9:40 AM T Center INDICATION: - Uprights COMPARISON: MRI of the cervical spine from 04/05/[address] cervical spine of the neck from 04/04/2017. TECHNIQUE: AP, open-mouth swimmer's lateral and lateral views of the cervical spine FINDINGS: There is mild asymmetric widening of the space between the right lateral mass of the axis and dense measuring 6 mm compared to 4 mm on the left. This may be partially positional. A nasogastric tube is noted. Patient imaging a cervical collar. Loss of cervical lordosis with minimal reversal of curvature centered at C5- 6. Vertebral body heights and disk heights are overall preserved. No prevertebral or paraspinous soft tissue abnormality is identified. IMPRESSION: 1. Mild asymmetric widening of the lateral atlantodental space on the right side may be positional. 2. Distraction injury at the craniocervical junction and C4-5 are better evaluated on the prior CT scan and MRI. Chest 1view DX EXAM: XR CHEST 1 VIEW 04/08/2017 [facility] DATE: 04/08/2017 3:00 AM T Center INDICATION: Dyspnea, Hypoxia - Dyspnea, Hypoxia COMPARISON: 04/07/2017 TECHNIQUE: AP chest FINDINGS: Lines, tubes and hardware: The endotracheal tube and gastric tube are stable in position. Lungs and pleura: Patchy airspace opacities in the right upper and lower lungs are unchanged and may represent atelectasis and/or pneumonia. Mild left basilar atelectasis is noted. The costophrenic sulci are sharp. No definite pneumothorax is seen. Heart and mediastinum: The cardiomediastinal silhouette is stable. Bones: The osseous structures are stable. IMPRESSION: 1. Patchy airspace opacities in the right upper and lower lungs, likely representing atelectasis and/or pneumonia. 2. Mild left basilar atelectasis. Chest 1view DX EXAM: XR CHEST 1 VIEW 04/07/2017 [facility] DATE: 04/07/2017 3:00 AM T Center INDICATION: Dyspnea, Hypoxia - Dyspnea, Hypoxia COMPARISON: Semierect AP chest radiograph 04/06/2017 at 2:48 PM TECHNIQUE: AP chest, semierect FINDINGS: Lines, tubes and hardware: ET tube and OG tube are unchanged. Lungs and pleura: Lung volumes are low. Opacities throughout the right lung and also the left retrocardiac space, which may represent any combination of atelectasis and pneumonia, are slightly improved. Additionally the bilateral pleural effusions have also improved in the interval. The left upper lung is clear. Heart and mediastinum: The heart size is normal for technique. The mediastinal contours are normal. Bones: No change from prior exam. IMPRESSION: 1. Improved aeration of the bilateral lungs which may represent resolving atelectasis and/or pneumonia. 2. Decreased size of the previously seen pleural effusions. Hand 3 views DX EXAM: XR HAND 3 VIEWS 04/06/2017 [facility] DATE: 04/06/2017 8:47 PM T Center INDICATION: - pain s/p trauma COMPARISON: None TECHNIQUE: PA, lateral and oblique radiographs of the hand Laterality: Right FINDINGS: No acute fracture or malalignment is identified. No joint space narrowing, osteophytes, or cysts. Mild soft tissue swelling. IMPRESSION: No acute bone abnormality. Forearm 2 views DX EXAM: XR FOREARM 2 VIEWS 04/06/2017 [facility] DATE: 04/06/2017 8:47 PM T Center INDICATION: - pain s/p trauma COMPARISON: None TECHNIQUE: AP and lateral radiographs of the forearm Laterality: Right FINDINGS: No acute fracture or malalignment is identified. Mild soft tissue swelling. IMPRESSION: No bony abnormality. Clavicle DX EXAM: XR CLAVICLE 2 VIEWS 04/06/2017 [facility] DATE: 04/06/2017 8:47 PM T Center INDICATION: - fracture. UPRIGHT. COMPARISON: None TECHNIQUE: AP and axial views of the clavicle Laterality: Left FINDINGS: No acute fracture or malalignment is identified. Partially imaged endotracheal and nasogastric tubes. IMPRESSION: No fracture or malalignment of the clavicle identified. Wrist complete DX EXAM: XR WRIST 3 VIEWS 04/06/2017 [facility] DATE: 04/06/2017 8:47 PM T Center INDICATION: - pain s/p trauma COMPARISON: None TECHNIQUE: PA, lateral and oblique radiographs of the wrist Laterality: Right FINDINGS: No acute fracture or malalignment is identified. No joint space narrowing, osteophytes, or cysts. Wrist soft tissue swelling. IMPRESSION: No acute bone abnormality. Chest 1view DX EXAM: XR CHEST 1 VIEW 04/06/2017 [facility] DATE: 04/06/2017 2:24 PM [facility] Center INDICATION: - s/p bronch COMPARISON: Chest radiograph 04/06/2017 at 12:56 AM TECHNIQUE: AP chest FINDINGS: Support lines and tubes are unchanged. Small bilateral pleural effusions. Increase in patchy right lung pulmonary opacities. Unchanged left retrocardiac opacity. No pneumothorax identified. Cardiac contours are unchanged. IMPRESSION: 1. Increase in patchy right lung pulmonary opacities, which may represent increased atelectasis or consolidation. 2. Unchanged left retrocardiac opacity representing atelectasis, consolidation, and/or layering pleural fluid. Chest Pulmonary EXAM: CTA CHEST WITH CONTRAST 04/06/2017 [facility] Embolism CTA DATE: 04/06/2017 7:12 AM T Center INDICATION: - Suspected PE COMPARISON: No available prior chest CTs for comparison. TECHNIQUE: Volumetric CT acquisition of the chest, during pulmonary arterial phase, after intravenous contrast. Axial, sagittal, coronal, and oblique MIP reconstructions are created at the acquisition workstation. IV Contrast: 70 mL of Omnipaque 350. DLP: 609 mGy-cm FINDINGS: Lines and tubes: Endotracheal tube with tip terminates 3 cm above the peter. Gastric tube is noted with adequate positioning. Lower neck: The visualized portion of the thyroid gland and lower neck are unremarkable. Heart and Mediastinum: No cardiomegaly. No pericardial effusion. No aortic or coronary atherosclerotic disease. Measurements and appearance of the thoracic aorta are normal. At the same level where the ascending aorta measures 2.4 cm the pulmonary trunk measures 2.3 cm. There is no pulmonary embolus. Pleura: No pleural effusions. No pneumothorax. Lymph Nodes: There is no hilar, mediastinal, axillary or internal mammary lymphadenopathy. Lungs: Patchy groundglass opacity and patchy and consolidative changes are seen in right upper lobe and to a lesser extent right middle lobe and left upper lobe. Consolidative changes are seen in both lower lobes showing heterogenous enhancement. Cavitary lesion is noted in the superior segment of the right lower lobe measuring 11 mm in diameter (axial image 80). Minimal interlobular septal thickening seen bilaterally. Trachea: Other than the endotracheal tube, unremarkable. Upper abdomen: Unremarkable. Bones and soft tissues: Unremarkable. IMPRESSION: 1. No pulmonary embolism. 2. Patchy consolidative changes and groundglass opacities seen in the right upper lobe in a peribronchial distribution as well as to a lesser extent in right middle lobe and left upper lobe consistent with multifocal pneumonia. 3. Heterogeneously enhancing consolidative changes in both lower lobe suggestive of infectious process superimposed on atelectatic changes due to volume loss. 4. Small cavitation is seen in the superior segment of the right lower lobe suggestive of cavitating pneumonia. RECOMMENDATIONS: Chest CT follow-up in 6-8 week following adequate treatment to assess for the resolution of the acute findings. Chest 1view DX EXAM: XR CHEST 1 VIEW 04/06/2017 [facility] DATE: 04/06/2017 12:42 AM T Center INDICATION: - post intubation COMPARISON: 04/05/2017 TECHNIQUE: AP chest FINDINGS: Lines, tubes and hardware: The endotracheal tube is approximately 3.2 cm above the peter. A gastric tube terminates in the stomach. Lungs and pleura: The lung volumes are diminished causing vascular crowding. Patchy interstitial and alveolar opacities are seen bilaterally with areas of peribronchial cuffing, suggestive of mild inter stitial pulmonary edema. Small bilateral layering pleural effusions are present. Bilateral lower lobe airspace opacities may represent a combination of the effusions with atelectasis and/or consolidation. Heart and mediastinum: The heart size is normal for technique. Bones: The osseous structures are stable. IMPRESSION: 1. Bilateral lower lung airspace opacities, possibly representing a combination of small layering pleural effusions with atelectasis and/or consolidation. Aspiration is another possibility. 2. Mild interstitial pulmonary edema. Abdomen AP DX EXAM: XR ABDOMEN 1 VIEW 04/05/2017 [facility] DATE: 04/05/2017 4:24 PM CDT Center INDICATION: - tube placement TECHNIQUE: AP view of the abdomen. FINDINGS: An NG tube is present. The tube tip is in the gastric fundus with proximal port in good position. There are no dilated loops of large or small bowel. Subsegmental airspace disease is present in the left lung base. IMPRESSION: 1. The NG tube is in good position. 2. Left lower lung airspace disease likely atelectasis or pneumonia. Knee wo contrast MRI EXAM: MR RIGHT KNEE WITHOUT CONTRAST 04/05/2017 [facility] DATE: 04/05/2017 3:07 AM CDT. Center INDICATION: lax with exam. COMPARISON: Same-day right knee radiograph at 0144 hours. TECHNIQUE: Multiplanar, multisequence noncontrast MR imaging of the right knee. [place] SECTION: MSK FINDINGS: Suboptimal evaluation due to motion degradation. MENISCI: Medial meniscus: Intact. Capsular ligaments intact. Lateral meniscus: Intact. Capsular ligaments intact. LIGAMENTS: ACL: The anterior cruciate ligament is intact. PCL: The posterior cruciate ligament is intact. MCL: The medial collateral ligament is intact. LCL: Small amount of soft tissue edema seen deep to and surrounding the fibular collateral ligament. EXTENSOR MECHANISM: Minimal prepatellar edema is seen at the origin of the patellar tendon. However, no tendon disruption is identified. The quadriceps tendon and patella are intact. MUSCLES: No signal abnormality in the muscles. CARTILAGE: Patellofemoral compartment: No chondral defects. Medial compartment: No chondral defects. Lateral compartment: No chondral defects. BONE: No fractures. Visualized bone marrow signal is normal. SOFT TISSUE: A multiseptated, popliteal fossa cyst measures approximately 2.5 x 0.9 x 3.1 cm. Subcutaneous soft tissue edema is seen predominantly within the posterior aspect of the knee. No abnormality of the neurovascular structures. IMPRESSION: 1. Grade I sprain of the fibular collateral ligament. 2. Minimal edema seen at the origin of the patellar tendon. However, no focal tendon disruption is identified. 3. Multiseptated small popliteal fossa cyst. Brain wo contrast MRI EXAM: MRI BRAIN WITHOUT CONTRAST 04/05/2017 [facility] DATE: 04/04/2017 11:58 PM CDT Center INDICATION: - cranial cervical dissociation COMPARISON: CT of the head, CT of the face from April 04 2017 TECHNIQUE: Multiplanar, mutisequence MRI of the brain without contrast. IV contrast: None. FINDINGS: The sulci and the ventricles are normal for the patient's age. No restricted diffusion is present. No intracranial hemorrhage is identified. No brain parenchymal lesions are seen. The midline is not deviated. No evidence of herniations. The intracranial arterial and venous structures demonstrate normal flow voids. There is a small amount of susceptibility artifact identified in the sylvian fissure left side that has no representation in any of the other sequences. This may represent some old hemosiderin deposits What is seen in the left mastoid air cells. The visible paranasal sinuses and skull base are unremarkable. IMPRESSION: No acute intracranial abnormalities present. Spine cervical wo EXAM: MRI CERVICAL SPINE WITHOUT CONTRAST 04/05/2017 [facility] contrast MRI EXAM: MRI OF THE CRANIOCERVICAL JUNCTION WITHOUT CONTRAST. Center DATE: 04/05/2017 12:03 AM CDT INDICATION: - cranical cervical dissociation COMPARISON: CT of the face from the previous day TECHNIQUE: Multiplanar, multisequence noncontrast MR imaging of the cervical spine. Thin slice high-resolution T2-weighted images were obtained in coronal sagittal and axial plane of the craniocervical junction. IV contrast: None. FINDINGS: The alignment is normal. The signal intensity of the spinal cord is within normal limits. No evidence of a syrinx. At C2/C3, no spinal canal stenosis or neural foraminal narrowing. At C3/C4, no spinal canal stenosis or neural foraminal narrowing. At C4/C5, linear anterior epidural hematoma is seen which does not significantly compress the thecal sac. No spinal canal stenosis or neural foraminal narrowing. At C5/C6, a left preforaminal disc protrusion is present with minimal amount of a surrounding spur, likely related to a traumatic acute disc herniation. No evidence of spinal canal stenosis or neural foraminal narrowing. At C6/C7, no spinal canal stenosis or neural foraminal narrowing. At C7/T1, no spinal canal stenosis or neural foraminal narrowing. At C2/C3, no spinal canal stenosis or neural foraminal narrowing. Cranial cervical junction: Widening with fluid of the atlantoaxial spaces is seen in both sides without evidence of disruption of the capsule. Minimal amount of fluid is identified in the atlantodental occipital joints without disruption of the capsule. The transverse ligament is intact and demonstrates increased signal in its right attachment. Disruption of the fibers of the left alar ligament is present approximately in the middle third of the ligament. The tectorial membrane shows fraying of its fibers close the transverse ligament. The interspinous ligaments are intact. The flow voids of the vertebral arteries are intact. No evidence of craniocervical dissociation. IMPRESSION: 1. Disruption of the left alar ligament. 2. Fraying of the insertion of the tectorial membrane close to the transverse ligament. 3. Increased signal of the right attachment of the transverse ligament without evidence of tear disruption of fibers. 4. Widening of the atlantodental axial joints spaces, symmetric in both sides. 5. Fluid in the atlantooccipital joint spaces. 6. Linear epidural hematoma at C4/C5 ventrally. 7. Left preforaminal protrusion at C5/C6. Spine Cranio-junction EXAM: MRI CERVICAL SPINE WITHOUT CONTRAST 04/05/2017 [facility] contrast MRI EXAM: MRI OF THE CRANIOCERVICAL JUNCTION WITHOUT CONTRAST. Center DATE: 04/05/2017 12:03 AM CDT INDICATION: - cranical cervical dissociation COMPARISON: CT of the face from the previous day TECHNIQUE: Multiplanar, multisequence noncontrast MR imaging of the cervical spine. Thin slice high-resolution T2-weighted images were obtained in coronal sagittal and axial plane of the craniocervical junction. IV contrast: None. FINDINGS: The alignment is normal. The signal intensity of the spinal cord is within normal limits. No evidence of a syrinx. At C2/C3, no spinal canal stenosis or neural foraminal narrowing. At C3/C4, no spinal canal stenosis or neural foraminal narrowing. At C4/C5, linear anterior epidural hematoma is seen which does not significantly compress the thecal sac. No spinal canal stenosis or neural foraminal narrowing. At C5/C6, a left preforaminal disc protrusion is present with minimal amount of a surrounding spur, likely related to a traumatic acute disc herniation. No evidence of spinal canal stenosis or neural foraminal narrowing. At C6/C7, no spinal canal stenosis or neural foraminal narrowing. At C7/T1, no spinal canal stenosis or neural foraminal narrowing. At C2/C3, no spinal canal stenosis or neural foraminal narrowing. Cranial cervical junction: Widening with fluid of the atlantoaxial spaces is seen in both sides without evidence of disruption of the capsule. Minimal amount of fluid is identified in the atlantodental occipital joints without disruption of the capsule. The transverse ligament is intact and demonstrates increased signal in its right attachment. Disruption of the fibers of the left alar ligament is present approximately in the middle third of the ligament. The tectorial membrane shows fraying of its fibers close the transverse ligament. The interspinous ligaments are intact. The flow voids of the vertebral arteries are intact. No evidence of craniocervical dissociation. IMPRESSION: 1. Disruption of the left alar ligament. 2. Fraying of the insertion of the tectorial membrane close to the transverse ligament. 3. Increased signal of the right attachment of the transverse ligament without evidence of tear disruption of fibers. 4. Widening of the atlantodental axial joints spaces, symmetric in both sides. 5. Fluid in the atlantooccipital joint spaces. 6. Linear epidural hematoma at C4/C5 ventrally. 7. Left preforaminal protrusion at C5/C6. Clavicle DX EXAM: XR RIGHT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
--- OUTSIDE RECORDS SUMMARY | 2019-02-20 23:10 | XMS REPORT | Summary of Care ---
:1980 Author Name Megan Duron M.A. Address Unavailable Unavailable , Care Team Providers Name Role Phone ELODIA MENEZES Unavailable Unavailable SHANNON BAUMAN M.D. Unavailable Unavailable Megan Duron M.A. Unavailable Unavailable ANN CHRIS MD Unavailable Unavailable ELODIA OZUNA Unavailable Unavailable Unavailable Unavailable Unavailable Functional Status [...] SHANNON BAUMAN M.D. Start : 16-May-2017 Active Gabapentin 300 MG Oral Capsule One tablet every 8 hours Quantity: 60 Refills: 0 ELODIA MENEZES Start : 07-Mar-2018 Active Allergies and Adverse Reactions Name Dates [...] to report Results Date Description Value Details [id number] [U] XRAY PELVIS MIN 3 VWS [id number] XR PELVIS MIN 3 VWS Images acquired, not reported on this accession number. Plan of Care Name Dates Details Planned Observations Planned Goals not documented Instructions Name Dates Details Instructions not documented Encounters Appointment; CANDIDO WARREN, PJacinta On: 20-Apr-2017 10:00 Encounter Diagnosis: Problem not [...] not documented Appointment; ELODIA HERNANDES P.A. On: 01-Jun-2017 9:00 Encounter Diagnosis: Problem not documented Appointment; ELODIA HERNANDES P.A. On: 27-Jul-2017 9:00 Encounter Diagnosis: Problem not documented Appointment; CONNIE LOREDO M.D. On: 19-Oct-2017 10:00 Encounter Diagnosis: Problem not documented Appointment; ELODIA HERNANDES P.A. On: 16-Nov-2017 9:30 Encounter Diagnosis: Problem not documented Appointment; ELODIA HERNANDES P.A. On: 01-Mar-2018 9:00 Encounter Diagnosis: Problem not documented Appointment; CHARLES RON M.D. On: 26-Mar-2018 8:30 Encounter Diagnosis: Problem not documented
[2019-02-20] MEDS ORDERED: THIAMINE 200 MG/2 ML INJ ONE (23:21)
[2019-02-20] MEDS ORDERED: ONDANSETRON 4 MG/2 ML VIAL ONE (23:22)
[2019-02-21 00:09] LABS: Protime INR 0.94
[2019-02-21 00:12] LABS: Absolute Lymphocytes (CBC) 2.2 K/uL (0.7-4.9); Basophils % 0.4 % (0-1.3); Hematocrit 41.4 % (39.6-49.0); Lymphocytes % 23.9 % (15.3-44.8); MPV 9.1 fL (7.6-11.3); RBC Red Blood Cell Count 4.66 M/uL (4.33-5.43)
[2019-02-21 00:36] LABS: ALT/SGPT 19 U/L (12-78); AST/SGOT 13 U/L (15-37); Albumin 3.7 g/dL (3.4-5.0); Alkaline Phosphatase 51 U/L (45-117); BUN Blood Urea Nitrogen 18 mg/dL (7-18); Bicarbonate 24 mmol/L (21-32); Bilirubin Direct < 0.1 mg/dL (0-0.2); Bilirubin Total 0.2 mg/dL (0.2-1.0); Glucose Level 100 mg/dL (74-106); Lipase 118 U/L (73-393); Magnesium 2.3 mg/dL (1.8-2.4); NT PRO-BNP 11 pg/mL (<125); Potassium 3.6 mmol/L (3.5-5.1); Protein, Total 7.1 g/dL (6.4-8.2); Sodium Level 145 mmol/L (136-145); Troponin (Emerg Dept Use Only) < 0.02 ng/mL (0.0-0.045)
--- NOTE | 2019-02-21 00:45 | ER ---
Nurse's Notes [facility] Name: Kamlesh Fitzpatrick Age: 38 yrs Sex: Male : 1980 Arrival Date: 02/20/2019 Time: 23:04 Bed 2 Private MD: Diagnosis: Vomiting;Alcohol abuse with intoxication Presentation: 02/20 22:52 Presenting complaint: EMS states: that they were toned for pt being unresponsive in bathroom. Family told them that pt came home after drinking a few beers and was having nausea/vomiting which started at 2100. Transition of care: patient was not received from another setting of care. Onset of symptoms was February 20, 2019 at 21:00. Risk Assessment: Do you want to hurt yourself or someone else? Patient reports no desire to harm self or others. Initial Sepsis Screen: Does the patient meet any 2 criteria? No. Patient's initial sepsis screen is negative. Does the patient have a suspected source of infection? No. Patient's initial sepsis screen is negative. Care prior to arrival: Medication(s) given: Normal saline infusion, 300 ml zofran 4 mg, IV initiated. 18 GA, in the right antecubital area, Glucose check: 116. 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 - Social history:: Smoking status: Patient/guardian denies using tobacco, Patient uses alcohol, occasionally. Patient/guardian denies using street drugs. - Family history:: not pertinent. - Ebola Screening: : Patient negative for fever greater than or equal to 101.5 degrees Fahrenheit, and additional compatible Ebola Virus Disease symptoms Patient denies exposure to infectious person Patient denies travel to an Ebola-affected area in the 21 days before illness onset. Screenin:52 Abuse screen: Denies threats or abuse. Nutritional screening: No deficits noted. Tuberculosis screening: No symptoms or risk factors identified. Fall Risk No fall in past 12 months (0 pts). Secondary diagnosis (15 points) IV access (20 points). Ambulatory Aid- None/Bed Rest/Nurse Assist (0 pts). Gait- Impaired (20 pts.). Mental Status- Overestimates/Forgets Limitations (15 pts.). Total Bradshaw Fall Scale indicates High Risk Score (45 or more points). Fall prevention measures have been instituted. Side Rails Up X 2 Placed Close to Nursing Station Frequent Obs/Assessments Occuring As available patient and family educated on Fall Prevention Program and Strategies. Assessment: 23:30 General: Appears in no apparent distress. Behavior is responsive to painful stimuli . ak1 Pain: Denies pain. Neuro: Level of Consciousness is obeys commands, lethargic, Speech is slurred, pt with ETOH on board. Cardiovascular: No deficits noted. Respiratory: Airway is patent Respiratory effort is even, unlabored, Breath sounds are clear bilaterally. GI: Abdomen is round non-distended, Parent/caregiver reports the patient having vomiting. : No signs and/or symptoms were reported regarding the genitourinary system. unable to advance catheter for straight cath. EENT: No signs and/or symptoms were reported regarding the EENT system. Derm: Skin is dry. Musculoskeletal: No signs and/or symptoms reported regarding the musculoskeletal system. Vital Signs: 22:52 BP 112 / 75; Pulse 84; Resp 20; Temp 98.1(O); Pulse Ox 99% on R/A; Weight 88.45 kg (R); fc Height 5 ft. 8 in. (172.72 cm) (R); Pain 6/10; 23:49 BP 105 / 85; Pulse 71; Resp 14; Pulse Ox 96% on R/A; ak1 02/21 00:45 BP 107 / 63; Pulse 76; Resp 14; Pulse Ox 98% on R/A; ak1 02:04 BP 105 / 56; Pulse 76; Resp 16; Temp 98.1; Pulse Ox 99% on R/A; Pain 0/10; ak1 02/20 22:52 Body Mass Index 29.65 (88.45 kg, 172.72 cm) ED Course: 02/20 22:52 Maintain EMS IV. Dressing intact. Good blood return noted. Site clean \T\ dry. Gauge \T\ site: 18 gauge to right a/c. 22:52 Arm band placed on Patient placed in an exam room, on a stretcher. 22:52 Patient has correct armband on for positive identification. Placed in gown. Bed in low fc position. Call light in reach. Side rails up X2. roller print tender on. Pulse ox on. NIBP on. 23:04 Patient arrived in ED. chandler 23:04 Alex Choi MD is Attending Physician. chandler 23:17 Alyssa Latham, RN is Primary Nurse. ak1 23:18 EKG done, by ED staff, reviewed by Alex Choi MD. Inserted saline lock: 20 gauge in ak1 left hand, using aseptic technique. 23:21 Radiology exam delayed due to Labs being drawn at this time. kw1 23:22 Triage completed. fc 23:29 Radiology exam delayed due to Having an X-Ray at this time. kw1 23:35 X-ray completed. Portable x-ray completed in exam room. Patient tolerated procedure kw well. 23:36 XRAY Chest (1 view) In Process Unspecified. EDMS 23:47 CT Head Brain wo Cont In Process Unspecified. EDMS 23:49 No provider procedures requiring assistance completed. sc1 02/21 02:05 IV discontinued, intact, bleeding controlled, No redness/swelling at site. Pressure ak1 dressing applied. Administered Medications: 02/20 23:00 Drug: NS 0.9% 1000 ml {Note: finishing EMS liter.} Route: IV; Rate: 1 bolus; Site: left ak1 hand; 23:28 Follow up: IV Status: Completed infusion; IV Intake: 1000ml ak1 23:28 Drug: Thiamine 100 mg Route: IV; Rate: per protocol; Site: left hand; ak1 23:30 Follow up: IV Status: Completed infusion ak1 23:28 Drug: Zofran 4 mg Route: IVP; Site: right antecubital; ak1 23:28 Follow up: Response: No adverse reaction ak1 02/21 00:54 Drug: NS 0.9% 1000 ml Route: IV; Rate: 1 bolus; Site: left hand; ak1 01:54 Follow up: IV Status: Completed infusion; IV Intake: 1000ml ak1 01:54 Drug: NS 0.9% 1000 ml Route: IV; Rate: 1 bolus; Site: left hand; ak1 02:11 Follow up: IV Status: Order to discontinue infusion; Order to discontinue infusionpt ak1 discharged; IV Intake: 100ml Intake: 02/20 23:28 IV: 1000ml; Total: 1000ml. ak1 02/21 01:54 IV: 1000ml; Total: 2000ml. ak1 02:11 IV: 100ml; Total: 2100ml. ak1 Outcome: 00:43 Discharge ordered by . chandler 02:04 Discharged to home via wheelchair, with family. ak1 02:04 Condition: stable 02:04 Discharge instructions given to patient, family, Instructed on discharge instructions, follow up and referral plans. no drinking with medication, no driving heavy equipment, medication usage, Demonstrated understanding of instructions, follow-up care, medications, Prescriptions given X 2. 02:14 Patient left the ED. ak1 Signatures: Dispatcher [employer] EDMS Alex Choi MD MD cha Chretien, Felicia RN RN Ashley Stanley Amber, RN RN [facility] Nieves Gaines Corrections: (The following items were deleted from the chart) 02/20 23:24 22:52 Fall Risk None identified. meredith harper
--- NOTE | 2019-02-21 00:46 | EDPHYS ---
Physician Documentation [facility] Name: Kamlesh Fitzpatrick Age: 38 yrs Sex: Male : 1980 Arrival Date: 02/20/2019 Time: 23:04 Bed 2 Private MD: ED Physician Alex Choi HPI: 02/20 23:07 This 38 yrs old Male presents to ER via Unassigned with complaints of chandler vomiting and pain all over. 23:07 The patient presents to the emergency department with nausea, vomiting, that is chandler intermittent. Onset: The symptoms/episode began/occurred just prior to arrival. Possible causes: unknown. The symptoms are aggravated by nothing. The symptoms are alleviated by nothing. etoh, vomiting. The patient presents with decreased mental status, decreased responsiveness. Possible causes: alcohol, unknown. Associated signs and symptoms: Pertinent positives: nausea, vomiting, weakness. 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 - Social history:: Smoking status: Patient/guardian denies using tobacco, Patient uses alcohol, occasionally. Patient/guardian denies using street drugs. - Family history:: not pertinent. - Ebola Screening: : Patient negative for fever greater than or equal to 101.5 degrees Fahrenheit, and additional compatible Ebola Virus Disease symptoms Patient denies exposure to infectious person Patient denies travel to an Ebola-affected area in the 21 days before illness onset. ROS: 23:07 Constitutional: Negative for fever, chills, and weight loss, Eyes: Negative for injury, chandler pain, redness, and discharge, ENT: Negative for injury, pain, and discharge, Neck: Negative for injury, pain, and swelling, Cardiovascular: Negative for chest pain, palpitations, and edema, Respiratory: Negative for shortness of breath, cough, wheezing, and pleuritic chest pain, Abdomen/GI: Negative for abdominal pain, nausea, vomiting, diarrhea, and constipation, Back: Negative for injury and pain, : Negative for injury, bleeding, discharge, and swelling, MS/Extremity: Negative for injury and deformity, Skin: Negative for injury, rash, and discoloration, Psych: Negative for depression, anxiety, suicide ideation, homicidal ideation, and hallucinations, Allergy/Immunology: Negative for hives, rash, and allergies, Endocrine: Negative for neck swelling, polydipsia, polyuria, polyphagia, and marked weight changes, Hematologic/Lymphatic: Negative for swollen nodes, abnormal bleeding, and unusual bruising. 23:07 Neuro: Positive for altered mental status, dizziness, weakness. Exam: 23:07 Constitutional: This is a well developed, well nourished patient who is awake, alert, chandler and in no acute distress. Head/Face: Normocephalic, atraumatic. Eyes: Pupils equal round and reactive to light, extra-ocular motions intact. Lids and lashes normal. Conjunctiva and sclera are non-icteric and not injected. Cornea within normal limits. Periorbital areas with no swelling, redness, or edema. ENT: Nares patent. No nasal discharge, no septal abnormalities noted. Tympanic membranes are normal and external auditory canals are clear. Oropharynx with no redness, swelling, or masses, exudates, or evidence of obstruction, uvula midline. Mucous membranes moist. Neck: Trachea midline, no thyromegaly or masses palpated, and no cervical lymphadenopathy. Supple, full range of motion without nuchal rigidity, or vertebral point tenderness. No Meningismus. Chest/axilla: Normal chest wall appearance and motion. Nontender with no deformity. No lesions are appreciated. Cardiovascular: Regular rate and rhythm with a normal S1 and S2. No gallops, murmurs, or rubs. Normal PMI, no JVD. No pulse deficits. Respiratory: Lungs have equal breath sounds bilaterally, clear to auscultation and percussion. No rales, rhonchi or wheezes noted. No increased work of breathing, no retractions or nasal flaring. Abdomen/GI: Soft, non-tender, with normal bowel sounds. No distension or tympany. No guarding or rebound. No evidence of tenderness throughout. Back: No spinal tenderness. No costovertebral tenderness. Full range of motion. Male : Normal genitalia with no discharge or lesions. Skin: Warm, dry with normal turgor. Normal color with no rashes, no lesions, and no evidence of cellulitis. MS/ Extremity: Pulses equal, no cyanosis. Neurovascular intact. Full, normal range of motion. Neuro: Awake and alert, GCS 15, oriented to person, place, time, and situation. Cranial nerves II-XII grossly intact. Motor strength 5/5 in all extremities. Sensory grossly intact. Cerebellar exam normal. Normal gait. Psych: Awake, alert, with orientation to person, place and time. Behavior, mood, and affect are within normal limits. Vital Signs: 22:52 BP 112 / 75; Pulse 84; Resp 20; Temp 98.1(O); Pulse Ox 99% on R/A; Weight 88.45 kg (R); fc Height 5 ft. 8 in. (172.72 cm) (R); Pain 6/10; 23:49 BP 105 / 85; Pulse 71; Resp 14; Pulse Ox 96% on R/A; ak1 02/21 00:45 BP 107 / 63; Pulse 76; Resp 14; Pulse Ox 98% on R/A; ak1 02:04 BP 105 / 56; Pulse 76; Resp 16; Temp 98.1; Pulse Ox 99% on R/A; Pain 0/10; ak1 02/20 22:52 Body Mass Index 29.65 (88.45 kg, 172.72 cm) fc MDM: 02/20 23:05 Patient medically screened. [facility] 23:07 Data reviewed: vital signs, nurses notes, lab test result(s), EKG, radiologic studies, [facility] CT scan, plain films. 02/20 23:06 Order name: Basic Metabolic Panel; Complete Time: 00:42 [facility] 02/20 23:06 Order name: CBC with Diff; Complete Time: 00:14 [facility] 02/20 23:06 Order name: LFT's; Complete Time: 00:42 [facility] 02/20 23:06 Order name: Magnesium; Complete Time: 00:42 [facility] 02/20 23:06 Order name: NT PRO-BNP; Complete Time: 00:42 [facility] 02/20 23:06 Order name: PT-INR; Complete Time: 00:14 [facility] 02/20 23:06 Order name: Troponin (emerg Dept Use Only); Complete Time: 00:42 [facility] 02/20 23:06 Order name: XRAY Chest (1 view) [facility] 02/20 23:06 Order name: Acetaminophen; Complete Time: 00:42 [facility] 02/20 23:06 Order name: ETOH Level; Complete Time: 00:42 [facility] 02/20 23:06 Order name: Ptt, Activated; Complete Time: 00:14 [facility] 02/20 23:06 Order name: Salicylate; Complete Time: 00:42 [facility] 02/20 23:06 Order name: Urine Drug Screen [facility] 02/20 23:06 Order name: Lipase; Complete Time: 00:42 [facility] 02/20 23:06 Order name: EKG; Complete Time: 23:08 [facility] 02/20 23:06 Order name: Cardiac monitoring; Complete Time: 23:19 [facility] 02/20 23:06 Order name: EKG - Nurse/Tech; Complete Time: 23:19 [facility] 02/20 23:06 Order name: IV Saline Lock; Complete Time: 23:19 [facility] 02/20 23:06 Order name: Labs collected and sent; Complete Time: 23:19 [facility] 02/20 23:06 Order name: O2 Per Protocol; Complete Time: 23:19 [facility] 02/20 23:06 Order name: O2 Sat Monitoring; Complete Time: 23:19 [facility] 02/20 23:06 Order name: Urine Dipstick-Ancillary (obtain specimen); Complete Time: 02:04 [facility] 02/20 23:06 Order name: CT Head Brain wo Cont chandler Administered Medications: 23:00 Drug: NS 0.9% 1000 ml {Note: finishing EMS liter.} Route: IV; Rate: 1 bolus; Site: left [address]; 23:28 Follow up: IV Status: Completed infusion; IV Intake: 1000ml [facility] 23:28 Drug: Thiamine 100 mg Route: IV; Rate: per protocol; Site: left hand; [facility] 23:30 Follow up: IV Status: Completed infusion [facility] 23:28 Drug: Zofran 4 mg Route: IVP; Site: right antecubital; [facility] 23:28 Follow up: Response: No adverse reaction [facility] 02/21 00:54 Drug: NS 0.9% 1000 ml Route: IV; Rate: 1 bolus; Site: left hand; az1 01:54 Follow up: IV Status: Completed infusion; IV Intake: 1000ml ak 01:54 Drug: NS 0.9% 1000 ml Route: IV; Rate: 1 bolus; Site: left hand; [facility] 02:11 Follow up: IV Status: Order to discontinue infusion; Order to discontinue infusionpt [facility] discharged; IV Intake: 100ml Disposition: 02/21/19 00:43 Discharged to Home. Impression: Vomiting, Alcohol abuse with intoxication. - Condition is Stable. - Discharge Instructions: Alcohol Intoxication, Nausea and Vomiting, Adult, Alcohol Intoxication, [id number], Nausea and Vomiting, Adult, [id number], Alcohol Abuse and Nutrition. - Prescriptions for Zofran 4 mg Oral Tablet - take 1 tablet by ORAL route every 12 hours As needed; 20 tablet. Pepcid 20 mg Oral Tablet - take 1 tablet by ORAL route every 12 hours for 10 days; 20 tablet. - Medication Reconciliation Form, Thank You Letter, Antibiotic Education, Prescription Opioid Use, Work release form, Family Work Release form. - Follow up: Private Physician; When: 2 - 3 days; Reason: Recheck today's complaints, Continuance of care, Re-evaluation by your physician. - Problem is new. - Symptoms have improved. Signatures: Dispatcher [employer] EDMS Alex Choi MD MD cha Chretien, Felicia RN RN Alyssa Adames RN RN ak1 Corrections: (The following items were deleted from the chart) 02:14 00:43 02/21/2019 00:43 Discharged to Home. Impression: Vomiting; Alcohol abuse with ak1 intoxication. Condition is Stable. Discharge Instructions: Alcohol Intoxication, Nausea and Vomiting, Adult, Alcohol Intoxication, [id number], Nausea and Vomiting, Adult, [id number], Alcohol Abuse and Nutrition. Prescriptions for Zofran 4 mg Oral Tablet - take 1 tablet by ORAL route every 12 hours As needed; 20 tablet. and Forms are Medication Reconciliation Form, Thank You Letter, Antibiotic Education, Prescription Opioid Use. Follow up: Private Physician; When: 2 - 3 days; Reason: Recheck today's complaints, Continuance of care, Re-evaluation by your physician. Problem is new. Symptoms have improved. chandler
[2019-02-21] MEDS ORDERED: NA CHLORIDE 0.9% 1,000 ML ONE ×2 (00:51→01:53)
[2019-02-21 02:22] VITALS: BP 105/56; TEMP 98.1; O2SAT 99
[2019-02-21 03:11] LABS: Barbiturates NEGATIVE (NEGATIVE); Benzodiazepines NEGATIVE (NEGATIVE); Cocaine NEGATIVE (NEGATIVE); METHAMPHETAM NEGATIVE (NEGATIVE); Methadone NEGATIVE (NEGATIVE); Opiates NEGATIVE (NEGATIVE); Phencyclidine NEGATIVE (NEGATIVE); THC Cannibis NEGATIVE (NEGATIVE)
--- NOTE | 2019-02-21 08:07 | RAD REPORT ---
EXAM DESCRIPTION: RAD - Chest Single View - 02/20/2019 11:41 pm CLINICAL HISTORY: COUGH Chest pain. COMPARISON: CHEST PA AND LAT 2 VIEW dated 02/07/2011 FINDINGS: Portable technique limits examination quality. The lungs are underinflated but grossly clear. The heart is normal in size. No displaced fractures. IMPRESSION: Underinflated lungs.
--- NOTE | 2019-02-21 11:09 | EKG ---
Test Date: 2019-02-20 Test Time: 23:06:31 Counter Server: YURI MEASUREMENT RESULTS: Intervals: Rate: 70 VA: 150 QRSD: 86 QT: 416 QTc: 449 [employer]: P: 31 VA: 150 QRS: 73 T: 24 INTERPRETIVE STATEMENTS: Normal sinus rhythm Cannot rule out Anterior infarct, age undetermined Abnormal ECG Compared to ECG 03/16/2007 15:06:57 Myocardial infarct finding now present Sinus bradycardia no longer present Electronically Signed On 02-21-19 11:06:13 CDT by José Manuel Padron
--- NOTE | 2019-02-22 13:59 | RAD REPORT ---
EXAM DESCRIPTION: CT Head Without Intravenous Contrast CLINICAL HISTORY: The patient is 38 years old and is Male; MENTAL STATUS CHANGE TECHNIQUE: Axial computed tomography images of the head/brain without intravenous contrast. Sagitt al and coronal reformatted images were created and reviewed. This CT exam was performed using one o r more of the following dose reduction techniques: automated exposure control, adjustment of the mA and/or kV according to patient size, and/or use of iterative reconstruction technique. COMPARISON: No relevant prior studies available. FINDINGS: BRAIN: Unremarkable. The shields-white matter differentiation is preserved . No hemorrhag e. No significant white matter disease. No edema. No extra-axial fluid collections. VENTRICLES: Unremarkable. No ventriculomegaly. BONES/JOINTS: No acute fracture. SOFT TISSUES: Unremarkable. SINUSES: Unremarkable as visualized. No acute sinusitis. MASTOID AIR CELLS: Unremarkable as visualized. No mastoid effusion. IMPRESSION: No acute intracranial findings. Electronically signed by: Kelle Parks MD 02/21/2019 12:19 AM CDT Due to temporary technical issues with the PACS/Fluency reporting system, reports are being signed by the in house radiologist as a courtesy to ensure prompt reporting. The interpreting radiologist is f ully responsible for the content of the report.
== END 2019-02-21 02:14 | disposition home or self-care (01) ==
LOC: ER 23:03
DX: F10.129 Alcohol abuse with intoxication, unspecified (principal); Z88.0 Allergy status to penicillin; Z91.09 Other allergy status, other than to drugs and biological substances; Z91.013 Allergy to seafood
CPT/HCPCS: 93005; 85025; 80048; 36415; 80320; 83735; 80329 ×2; 85610; 80076; 80307 ×8; 85730; 84484; 83690; 83880; 70450; 71045; 99285; J3411; J7030 ×2; J2405

== ENCOUNTER 2021-02-12 20:11 | Emergency (ER) | payer BC ==
--- OUTSIDE RECORDS SUMMARY | 2021-02-12 20:14 | XMS REPORT | Continuity of Care Document ---
:1980 Author Organization [facility] t Address [address] [place] [address] Care Team Providers Name Role Phone RENY Attending Clinician Unavailable FACUNDO Attending Clinician Unavailable ARIADNE Attending Clinician Unavailable GRETA Attending Clinician Unavailable DANIEL Attending Clinician Unavailable BREANNA Attending Clinician Unavailable TANIYA Attending Clinician Unavailable KELVIN Attending Clinician Unavailable Problems Condition Condition Condition Status Onset Resolution Last Treating Co mments Source Name Details Category Date Date Treatment Clinician Date History of History of Problem Resolve Univers kidney kidney d ity of stones stones [place] [facility] Closed Closed Problem Active Univers posterior posterior it[place] of [place]loc[place] n of right n of right Ph ysici hip, hip, ans initial initial encounter encounter Fracture Fracture Problem Active Unive rs of of ity of mandible mandible [place] [facility] ans Sprain of Sprain of Problem Active Uni vers medial medial it[place] of collateral collateral [place] ligament ligament Physic i of right of right ans knee, knee, initial initial encounter encounter Memory Memory Problem Active Univers problem problem ity of [place] Physici ans Dislocatio Dislocatio Problem Active U nivers n of right n of right it y of hip, hip, [place] initial initial Physici encounter encounter ans Right hip Right hip Problem Active Uni vers pain pain ity of [place] Physici ans Femoroacet Femoroacet Problem Active U nivers abular abular ity of [place] t of right t of right Ph ysici hip hip ans Tear of Tear of Problem Active Univers right right ity of acetabular acetabular [place] labrum, labrum, Physici initial initial ans encounter encounter Allergies, Adverse Reactions, Alerts This patient has no known allergies or adverse reactions. Family History Family Member Diagnosis Comments Start Date Stop Date Source Mother Family history of [facility] [place] diabetes mellitus Physici ans Mother Family history of [facility] [place] hypertension Physicians Father Family history of [facility] [place] diabetes mellitus Physici ans Father Family history of [facility] [place] hypertension Physicians Social History Smoking Status Start Date Stop Date Source Former smoker [facility] jess Physicians Never smoker [facility] Physicians Medications Ordered Filled Start Stop Current Ordering Indication Dosage Frequency Signature Comments Components Source Medication Medication Date Date Medication? Clinician (SIG) Name Name Gabapentin Gabapentin Yes [place] One tablet Univers 300 MG Oral 300 MG Oral 9-26 LIVELY every 8 ity of Capsule Capsule 00:00: P.A. hours Physici ans Acetaminoph Acetaminoph 2016-06 Yes Univers en-Codeine en-Codeine 2-05 ity of #3 300-30 #3 300-30 00:00: Venkat as MG Oral MG Oral 00 Physici Tablet Tablet ans Donepezil Donepezil 2016-06 Yes SHANNON 1 TAKE 1 Univers HCl - 5 MG HCl - 5 MG 2-05 KESER M.D. TABLET AT ity of Oral Tablet Oral Tablet 00:00: BEDTIME. Physici ans Gabapentin Gabapentin 2016-06 Yes U nivers 300 MG/6ML 300 MG/6ML 09 ity of Oral Oral 00:00: [place] Solution Solution 00 Physici ans traMADol traMADol 2016-06 Yes Unive rs HCl - 50 MG HCl - 50 MG 06-20 i ty of Oral Tablet Oral Tablet 00:00: 00 Physici ans Naproxen Naproxen 2016-06 Yes Unive rs 500 MG Oral 500 MG Oral 06-20 i ty of Tablet Tablet 00:00: [place] 00 Physici ans MiraLax MiraLax 2016-06 Yes Univers Oral Packet Oral Packet 06-20 i ty of 00:00: [place] 00 Physici ans Enoxaparin Enoxaparin 2016-06 Yes U nivers Sodium 40 Sodium 40 09 ity o f MG/0.4ML MG/0.4ML 00:00: [place] Subcutaneou Subcutaneou 00 P hysici s Solution s Solution ans buPROPion buPROPion Yes Unive rs HCl - 100 HCl - 100 ity o f MG Oral MG Oral [place] Tablet Tablet Physici ans Mobic TABS Mobic TABS Yes Uni vers ity of [place] Physici ans Wellbutrin Wellbutrin Yes Uni vers SR 150 MG SR 150 MG ity o f TBCR TBCR [place] [facility] ans Vital Signs Vital Name Observation Time Observation Value Comments Source Height 2019-05-13 68 [in_us] University of 00:00:00 [place] Physician s Weight 2019-05-13 210 [lb_av] University of 00:00:00 [place] [facility]ician s Body Mass Index 2019-05-13 31.93 kg/m2 University o f Calculated 00:00:00 [place] Physician s Temperature 2017-05-29 97.3 [degF] Method: [facility] 11:35:00 Tympanic [place] [facility] Heart Rate 2017-05-29 65 /min [facility] 11:35:00 [place] Physician s BP Systolic 2017-05-29 113 mm[Hg] Location: [facility]; [facility] 11:35:00 Position: [place] Physician s Sitting BP Diastolic 2017-05-29 73 mm[Hg] Location: [facility] 11:35:00 Position: [place] Physician s Sitting Height 2017-05-29 68 [in_us] [facility] 11:35:00 [place] Physician s Weight 2017-05-29 223 [lb_av] [facility] 11:35:00 [place] Physician s Body Mass Index 2017-05-29 33.91 kg/m2 University o f Calculated 11:35:00 [place] Physician s BP Systolic 2017-05-23 160 mm[Hg] University of 10:04:00 [place] Physician s BP Diastolic 2017-05-23 78 mm[Hg] [facility] 10:04:00 [place] Physician s Temperature 2017-05-23 98.1 [degF] University 10:04:00 [place] Phys[facility] s Heart Rate 2017-05-23 57 /min University of 10:04:00 [place] Physician s Respiration Rate 2017-05-23 17 /min Marty of 10:04:00 [place] Physician s BP Systolic 2017-05-19 126 mm[Hg] University of 09:48:00 [place] Physician s BP Diastolic 2017-05-19 81 mm[Hg] Marty of 09:48:00 [place] Phys[facility] s Height 2017-05-19 69 [in_us] University of 09:48:00 [place] Phys[facility] s Weight 2017-05-19 222 [lb_av] University of 09:48:00 [place] Physician s Body Mass Index 2017-05-19 32.78 kg/m2 University o f Calculated 09:48:00 [place] Phys[facility] s Heart Rate 2017-05-19 65 /min [facility] 09:48:00 [place] Physician s BP Systolic 2017-05-01 126 mm[Hg] University of 14:27:00 [place] Physician s BP Diastolic 2017-05-01 87 mm[Hg] University of 14:27:00 [place] [facility] Height 2017-05-01 68 [in_us] University of 14:27:00 [place] Phys[facility] s Weight 2017-05-01 227 [lb_av] University of :27:00 [place] Physician s Body Mass Index 2017-05-01 34.52 kg/m2 University o f Calculated 14:27:00 [place] Physician s Temperature 2017-05-01 97.1 [degF] University of :27:00 [place] [facility] s Heart Rate 2017-05-01 83 /min University of 14:27:00 [place] Physician s BP Systolic 2017-04-25 124 mm[Hg] University of :03:00 [place] Physician s BP Diastolic 2017-04-25 73 mm[Hg] University of :03:00 [place] [facility] s Height 2017-04-25 68 [in_us] University of :03:00 [place] Physician s Weight 2017-04-25 227 [lb_av] University of :03:00 [place] Physician s Body Mass Index 2017-04-25 34.52 kg/m2 University o f Calculated 14:03:00 [place] Physician s Respiration Rate 2017-04-25 17 /min University of 14:03:00 [place] Physician s BP Systolic 2017-04-24 108 mm[Hg] University of 11:25:00 [place] Physician s BP Diastolic 2017-04-24 70 mm[Hg] University of 11::00 [place] Phys[facility] s Height 2017-04-24 68 [in_us] University of 11:25:00 [place] Physician s Weight 2017-04-24 227 [lb_av] University of 11:25:00 [place] Physician s Body Mass Index 2017-04-24 34.52 kg/m2 University o f Calculated 11:25:00 [place] Physician s Temperature 2017-04-24 97.4 [degF] University of ::00 [place] Phys[facility] s Heart Rate 2017-04-24 80 /min University of 11:25:00 [place] Physician s BP Systolic 2017-04-20 111 mm[Hg] Location: [facility] 10:02:00 Position: [place] Physician s Sitting BP Diastolic 2017-04-20 78 mm[Hg] Location: [facility] 10:02:00 Position: [place] Physician s Sitting Height 2017-04-20 68 [in_us] [facility] 10:02:00 [place] Physician s Weight 2017-04-20 230 [lb_av] [facility] 10:02:00 [place] [facility] s Body Mass Index 2017-04-20 34.97 kg/m2 Marty o Calculated 10:02:00 [place] Physician s Temperature 2017-04-20 96.8 [degF] Method: [facility] 10:02:00 Temporal [place] [facility] s Heart Rate 2017-04-20 87 /min [facility] 10:02:00 [place] [facility] s Procedures Procedure Date / Time Performed Performing [facility] 2019-04-04 00:00:00 [facility] [id number] Hip without 2019-04-04 00:00:00 Marty o [facility] contrast [id number] Physicians [U] XRAY PELVIS MIN 3 2019-03-29 00:00:00 [facility] [id number] Physicians [U] XRAY PELVIS MIN 3 2019-03-18 00:00:00 [facility] [id number] Physicians [U] XRAY PELVIS MIN 3 2019-02-21 00:00:00 [facility] [id number] Physicians [UTP] EMG 2018-03-01 00:00:00 Marty o [facility] Physicians [U] XRAY PELVIS MIN 3 2018-02-21 00:00:00 [facility] [id number] Physicians [U] XRAY PELVIS MIN 3 2017-11-10 00:00:00 [facility] [id number] Physicians [U] XRAY PELVIS MIN 3 2017-07-20 00:00:00 [facility] [id number] Physicians [U] XRAY PELVIS MIN 3 2017-05-25 00:00:00 [facility] [id number] Physicians MRI Brain wo contrast 2017-05-23 00:00:00 [facility] [id number] Physicians MRI Brain wo contrast 2017-05-18 00:00:00 [facility] [id number] Physicians History of Mandible Marty o [facility] fracture repair Physicians Plan of Care Planned Activity Planned Date Details Comments Source Diagnostic Test 2018-03-26 [UTP] EMG [code = [facility] Pending 00:00:00 [UTP] EMG] Physicians Diagnostic Test 2018-03-01 [UTP] EMG [code = [facility] [place] Pending 00:00:00 [UTP] EMG] Physicians Diagnostic Test 2018-03-01 [[facility]] EMG [code = [facility] [place] Pending 00:00:00 [[facility]] EMG] Physicians Encounters Start End Encounter Admission Attending Care Care Encounter Source Date/Time Date/Time Type Type Clinicians Facility Department ID 2019-05-13 2019-05-13 T[facility] [id number] Univers 08:30:00 08:30:00 t; neva PIERCE [facility] catalina OGLESBY M.D. [facility] Phys[facility] ci M.DClar[facility] 2019-04-04 2019-04-04 [facility] [id number] Univers 11:00:00 11:00:00 t; CONNIE LOREDO, Trauma ity o antonio ROSALES M.D. [facility] 2019-03-21 2019-03-21 [facility] [id number] Univers 09:00:00 09:00:00 t; CONNIE LOREDO, Trauma ity o f [place] ROSALES [facility] 2019-02-28 2019-02-28 [facility] [id number] Univers 12:45:00 12:45:00 t; CONNIE LOREDO, Trauma devony justo ROSALES M.D. [facility] 2018-03-26 2018-03-26 TJ Heredia [facility] [id number] Univers 08:30:00 08:30:00 t; CHARLES RON ity of [facility]ST[place], M[facility] 2018-03-01 2018-03-01 [facility] [id number] Univers 09:00:00 09:00:00 t; ELODIA HERNANDES ity of AUDREY, P.A. [place] P[facility]. Physici [facility] 2017-11-16 2017-11-16 [facility] [id number] Univers 09:30:00 09:30:00 t; ELODIA HERNANDES ity of [place], P.A. [place] P[facility]. Physici ans 2017-10-19 2017-10-19 Appointmen FACUNDO [facility] [id number] Univers 10:00:00 10:00:00 t; CONNIE LOREDO ity o f JOSHUA, M.D. [place] Physici ans 2017-07-27 2017-07-27 Appointmen GRETA [facility] Orthopedics [id number] Univers 09:00:00 09:00:00 t; ELODIA HERNANDES ity of [place], P.A. [place] P[facility]. Physici ans 2017-06-01 2017-06-01 Appointmen TJ LOREDO [facility] [id number] Univers 10:30:00 10:30:00 t; CONNIE LOREDO ity o [facility] 2017-06-01 2017-06-01 [facility] [id number] Univers 09:00:00 09:00:00 t; ELODIA HERNANDES ity of [place], P.A. [place] P.[facility]. Physici ans 2017-05-29 2017-05-29 Appointmen DANIEL [facility] Plastic [id number] Univers 10:30:00 10:30:00 t; Dillon TILLEY Surgery it y of DANIELTREVA Mart Physici M.D. ans 2017-05-23 2017-05-23 Appointmen BREANNA [facility] [place] [id number] Univers 09:45:00 09:45:00 t; CARRIE CARLOS Orthopedics itraina of [place] BUTLER M.D. Physici ans 2017-05-16 2017-05-16 Appointmen TANIYA [facility] Neurology [id number] Univers 13:00:00 13:00:00 t; MARY MONAHAN it y of [place] HERNANDEZ M.D. Physici ans 2017-05-10 2017-05-10 [facility] [id number] Univers 13:00:00 13:00:00 t; [place] TILLEY it y of [place] TREVA Rivera Physici M.D. ans 2017-05-08 2017-05-08 Appointmen DANIEL, [facility] UTP [id number] Univers 09:50:00 09:50:00 t; [place] TILLEY y of [place] TREVA Rivera Physici M.D. ans 2017-05-01 2017-05-01 [facility] [id number] Univers 09:50:00 09:50:00 t; [place] TILLEY y [facility] TREVA Rivera Physici M.D. ans 2017-04-25 2017-04-25 App[facility] [id number] Univers 14:15:00 14:15:00 t; CARRIE CARLOS it y [place] Benson M.D. Physicalexandra ans 2017-04-24 2017-04-24 [facility] [id number] Univers 10:10:00 10:10:00 t; [place] ITLLEY y of [place] TREVA Rivera Physici M.D. ans 2017-04-20 2017-04-20 [facility] [id number] Univers 11:45:00 11:45:00 t; CONNIE LOREDO ity o f JOSHUA, M.D. [place] M.D. Physici ans 2017-04-20 2017-04-20 [facility] [id number] Univers 10:00:00 10:00:00 t; CANDIDO WARREN P.A. ity of [facility] [place] [facility] Results Test Description Test Time Test Comments Results Result Sour e Comments [U] XRAY HIP 2019-05-13 Images University o f UNILATERAL MIN 2 10:22:00 acquired, not [place] VWS RIGHT [id number] reported on Physicia ns this accession number. [U] XRAY PELVIS 2019-04-04 Images Universit y of MIN 3 [id number] [id number] 10:38:00 acquired, not [place] reported on Physicians this accession number. [U] XRAY PELVIS 2018-03-01 Images Universit y of MIN 3 [id number] [id number] 09:00:00 acquired, not [place] reported on Physicians this accession number. [U] XRAY PELVIS 2017-07-27 Images Universit y of MIN 3 [id number] [id number] 09:14:00 acquired, not [place] reported on Physicians this accession number. [U] XRAY PELVIS 2017-04-20 Images Universit y of MIN 3 [id number] [id number] 10:54:00 acquired, not [place] reported on Physicians this accession number.
--- NOTE | 2021-02-12 21:10 | RAD REPORT ---
EXAM DESCRIPTION: CT - Facial Bones W/ Mpr - 02/12/2021 8:49 pm CLINICAL HISTORY: Facial injury status post fall COMPARISON: Facial pain TECHNIQUE: Computed axial tomography of the face was obtained. Coronal and sagittal reconstruction w as performed. All CT scans are performed using dose optimization technique as appropriate and may include automated exposure control or mA/KV adjustment according to patient size. FINDINGS: An acute fracture is not seen. An old fracture involves the medial wall of the left orbit. Plate and screws affix old mandibular fra cture. A TMJ dislocation is not noted. Marked deviationnasal septum towards the left The globes are intact. Fluid within the sinuses is not seen. IMPRESSION: Negative for an acute facial fracture
--- NOTE | 2021-02-12 21:12 | RAD REPORT ---
EXAM DESCRIPTION: CT - Head C Spine Mpr Wo Con - 02/12/2021 8:49 pm CLINICAL HISTORY: Head and neck injury status post fall. Head and neck pain COMPARISON: None. TECHNIQUE: Computed axial tomography of the head and cervical spine was obtained. Sagittal and coronal reconstruction was performed. All CT scans are performed using dose optimization technique as appropriate and may include automated exposure control or mA/KV adjustment according to patient size. FINDINGS: An intracranial bleed is not seen. The ventricles are normal in caliber. An extra-axial fl uid collection is not noted.Fluid within the visualized sinuses and mastoids is not seen A cervical fracture is not visualized. No dislocation is noted. IMPRESSION: No acute intracranial abnormality is seen. A cervical fracture is not visualized. If the patient continues to have symptoms to suggest intracra nial /spinal cord pathology then MRI would be recommended
[2021-02-12 21:24] LABS: Absolute Lymphocytes (CBC) 1.6 K/uL (0.7-4.9); Basophils % 0.8 % (0-1.3); Hematocrit 45.1 % (39.6-49.0); Lymphocytes % 20.4 % (15.3-44.8); MPV 7.7 fL (7.6-11.3); RBC Red Blood Cell Count 4.94 M/uL (4.33-5.43)
[2021-02-12 21:30] LABS: Protime INR 0.99
[2021-02-12 21:47] LABS: ALT/SGPT 68 U/L (12-78); AST/SGOT 40 U/L (15-37); Alkaline Phosphatase 77 U/L (45-117); BUN Blood Urea Nitrogen 15 mg/dL (7-18); Bicarbonate 25 mmol/L (21-32); Bilirubin Direct < 0.1 mg/dL (0-0.2); Bilirubin Total 0.3 mg/dL (0.2-1.0); Glucose Level 99 mg/dL (74-106); Potassium 4.1 mmol/L (3.5-5.1); Protein, Total 7.7 g/dL (6.4-8.2); Sodium Level 141 mmol/L (136-145)
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
[2021-02-12 23:40] VITALS: TEMP 98.7
[2021-02-12 23:43] VITALS: BP 112/71; O2SAT 95
== END 2021-02-12 23:23 | disposition home or self-care (01) ==
LOC: ER 20:11
DX: F10.129 Alcohol abuse with intoxication, unspecified (principal); W18.00XA Striking against unspecified object with subsequent fall, initial encounter; Z88.0 Allergy status to penicillin; Z91.013 Allergy to seafood; Z91.048 Other nonmedicinal substance allergy status
CPT/HCPCS: 36415; 70450; 70486; 72125; 76377; 80048; 80076; 80320; 80329; 85025; 85610; 85730; 99284

== ENCOUNTER 2021-08-19 18:31 | Emergency (ER) | payer BC, SELFPAY ==
--- OUTSIDE RECORDS SUMMARY | 2021-08-19 18:33 | XMS REPORT | Continuity of Care Document ---
:1980 Author Organization [facility] t Address [address] [place] [address] Care Team Providers Name Role Phone Jovani SANCHEZ T Attending Clinician Unavailable Only, Db Test Attending Clinician Unavailable Domingo GALEANO Attending Clinician Doctor Unassigned, Name Attending Clinician Unavailable RENY Attending Clinician Unavailable FACUNDO Attending Clinician Unavailable ARIADNE Attending Clinician Unavailable GRETA Attending Clinician Unavailable [place] Attending Clinician Unavailable BREANNA Attending Clinician Unavailable TANIYA Attending Clinician Unavailable KELVIN Attending Clinician Unavailable Payers Payer Name Policy Type Policy Number Effective Date Expiration Date S ource Problems Condition Condition Condition Status Onset Resolution [...] Mother Family history of [facility] [place] diabetes mellitus Physici ans Mother Family history of [facility] [place] hypertension Physicians Father Family history of [facility] [place] diabetes mellitus Physici ans Father Family history of [facility] [place] hypertension [facility]icians Social History Social Habit Start Date Stop Date Quantity Comments Source Exposure to Not sure [facility] SARS-CoV-2 (event) Medica l Branch Sex Assigned [birth year] [facility] 00:00:00 00:00:00 Medical Branch Smoking Status Start Date Stop Date Source Unknown if ever smoked [facility] Former smoker [facility] Never smoker [facility] Medications Ordered Filled Start Stop Current Ordering Indication Dosage Frequency Signature Comments Components Source Medication Medication Date Date Medication? Clinician (SIG) Name Name Gabapentin Gabapentin Yes ELODIA One tablet Univers 300 MG Oral 300 MG Oral 9-26 LIVELY every 8 ity of Capsule Capsule 00:00: P.A. hours [place] 00 Physici ans Acetaminoph Acetaminoph 2016-06 Yes Univers en-Codeine en-Codeine 2-05 ity of #3 300-30 #3 300-30 00:00: Venkat as MG Oral MG Oral 00 Physici Tablet Tablet ans Donepezil Donepezil 2016-06 Yes SHANNON 1 TAKE 1 Univers HCl - 5 MG HCl - 5 MG 2-05 KESER M.DClarita TABLET AT ity of Oral Tablet Oral Tablet 00:00: BEDTIME. [place] 00 Physici ans Gabapentin Gabapentin 2016-06 Yes U nivers 300 MG/6ML 300 MG/6ML 1-09 ity of Oral Oral 00:00: [place] Solution Solution 00 Physici ans traMADol traMADol 2016-06 Yes Unive rs HCl - 50 MG HCl - 50 MG 1-09 i ty of Oral Tablet Oral Tablet 00:00: [place] 00 Physici ans Naproxen Naproxen 2016-06 Yes Unive rs 500 MG Oral 500 MG Oral 1-09 i ty of Tablet Tablet 00:00: [place] 00 Physici ans MiraLax MiraLax 2016-06 Yes Univers Oral Packet Oral Packet 06-20 i ty of 00:00: [place] 00 Physici ans Enoxaparin Enoxaparin 2016-06 Yes U nivers Sodium 40 Sodium 40 06-20 ity o f MG/0.4ML MG/0.4ML 00:00: [place] Subcutaneou Subcutaneou 00 P hysici s Solution s Solution ans Mobic TABS Mobic TABS Yes Uni vers [facility] Physici ans Wellbutrin Wellbutrin Yes Uni vers SR 150 MG SR 150 MG ity o f TBCR TBCR [place] Physici ans buPROPion buPROPion Yes Unive rs HCl - 100 HCl - 100 ity o f MG Oral MG Oral [place] Tablet Tablet Physici ans Vital Signs Vital Name Observation Time Observation Value Comments Source Height 2019-05-13 68 [in_us] [facility] 00:00:00 [place] Physician s Weight 2019-05-13 210 [lb_av] [facility] 00:00:00 [place] Physician s Body Mass Index 2019-05-13 31.93 kg/m2 University o f Calculated 00:00:00 [place] Physician s BP Systolic 2017-05-29 113 mm[Hg] Location: [facility] 11:35:00 Position: [place] Physician s Sitting BP Diastolic 2017-05-29 73 mm[Hg] Location: [facility] 11:35:00 Position: [place] Physician s Sitting Height 2017-05-29 68 [in_us] [facility] 11:35:00 [place] Physician s Weight 2017-05-29 223 [lb_av] [facility] 11:35: [place] Physician s Body Mass Index 2017-05-29 33.91 kg/m2 University o f Calculated 11:35:00 [place] Physician s Temperature 2017-05-29 97.3 [degF] Method: [facility] 11:35: Tympanic [place] Physician s Heart Rate 2017-05-29 65 /min [place] of 11:35:00 [place] Physician s BP Systolic 2017-05-23 160 mm[Hg] University of 10:04:00 [place] Physician s BP Diastolic 2017-05-23 78 mm[Hg] [facility] 10:04:00 [place] Phys[facility] s Temperature 2017-05-23 98.1 [degF] [facility] 10:04:00 [place] Phys[facility] s Heart Rate 2017-05-23 57 /min University of 10:04:00 [place] Physician s Respiration Rate 2017-05-23 17 /min University of 10:04:00 [place] Physician s BP Systolic 2017-05-19 126 mm[Hg] University of 09:48:00 [place] Physician s BP Diastolic 2017-05-19 81 mm[Hg] University of 09:48:00 [place] Phys[facility] s Height 2017-05-19 69 [in_us] University of 09:48:00 [place] Phys[facility] s Weight 2017-05-19 222 [lb_av] University of 09:48:00 [place] Phys[facility] s Body Mass Index 2017-05-19 32.78 kg/m2 University o f Calculated 09:48:00 [place] Phys[facility] s Heart Rate 2017-05-19 65 /min University of 09:48:00 [place] Physician s BP Systolic 2017-05-01 126 mm[Hg] University of 14:27:00 [place] Physician s BP Diastolic 2017-05-01 87 mm[Hg] University of 14:27:00 [place] Phys[facility] s Height 2017-05-01 68 [in_us] University of 14:27:00 [place] Phys[facility] s Weight 2017-05-01 227 [lb_av] University of 14:27:00 [place] Phys[facility] s Body Mass Index 2017-05-01 34.52 kg/m2 University o f Calculated 14:27:00 [place] Phys[facility] s Temperature 2017-05-01 97.1 [degF] University of 14:27:00 [place] Phys[facility] s Heart Rate 2017-05-01 83 /min University of 14:27:00 [place] Physician s BP Systolic 2017-04-25 124 mm[Hg] University of 14:03:00 [place] Phys[facility] s BP Diastolic 2017-04-25 73 mm[Hg] University of 14:03:00 [place] [facility] s Height 2017-04-25 68 [in_us] University of 14:03:00 [place] Phys[facility] s Weight 2017-04-25 227 [lb_av] University of :03:00 [place] Phys[facility] s Body Mass Index 2017-04-25 34.52 kg/m2 University o f Calculated 14:03:00 [place] Physician s Respiration Rate 2017-04-25 17 /min University of 14:03:00 [place] Phys[facility] s BP Systolic 2017-04-24 108 mm[Hg] University of 11:25:00 [place] Phys[facility] s BP Diastolic 2017-04-24 70 mm[Hg] University of 11:25:00 [place] Phys[facility] s Height 2017-04-24 68 [in_us] University 11:25:00 [place] Phys[facility] s Weight 2017-04-24 227 [lb_av] University 11:25:00 [place] Physician s Body Mass Index 2017-04-24 34.52 kg/m2 [place] [facility] Calculated 11:25:00 [place] Phys[facility] s Temperature 2017-04-24 97.4 [degF] [facility] 11:25:00 [place] [facility] s Heart Rate 2017-04-24 80 /min [facility] 11:25:00 [place] Phys[facility] s BP Systolic 2017-04-20 111 mm[Hg] Location: [facility]; [facility] 10:02:00 Position: [place] Physician s Sitting BP Diastolic 2017-04-20 78 mm[Hg] Location: [facility] 10:02:00 Position: [place] Physician s Sitting Height 2017-04-20 68 [in_us] University 10:02:00 [place] Phys[facility] s Weight 2017-04-20 230 [lb_av] [facility] 10:02:00 [place] [facility] s Body Mass Index 2017-04-20 34.97 kg/m2 [place] [facility] Calculated 10:02:00 [place] Phys[facility] s Temperature 2017-04-20 96.8 [degF] Method: [facility] 10:02:00 Temporal [place] Phys[facility] s Heart Rate 2017-04-20 87 /min [facility] 10:02:00 [place] Physician s Procedures Procedure Date / Time Performed Performing Clinician [facility] e CT Pelvis wo contrast 2019-04-04 00:00:00 [facility] [id number] Hip without 2019-04-04 00:00:00 [facility] [place] contrast [id number] Physicians [U] XRAY PELVIS MIN 3 2019-03-29 00:00:00 [facility] [id number] Physicians [U] XRAY PELVIS MIN 3 2019-03-18 00:00:00 [facility] [id number] Physicians [U] XRAY PELVIS MIN 3 2019-02-21 00:00:00 [facility] [id number] Physicians [UTP] EMG 2018-03-01 00:00:00 [facility] [place] [facility] [U] XRAY PELVIS MIN 3 2018-02-21 00:00:00 [facility] [id number] Physicians [U] XRAY PELVIS MIN 3 2017-11-10 00:00:00 [facility] [id number] Physicians [U] XRAY PELVIS MIN 3 2017-07-20 00:00:00 [facility] [id number] Physicians [U] XRAY PELVIS MIN 3 2017-05-25 00:00:00 [facility] [id number] Physicians MRI Brain wo contrast 2017-05-23 00:00:00 [facility] [id number] Physicians MRI Brain wo contrast 2017-05-18 00:00:00 [facility] [id number] Physicians History of Mandible [facility] [place] fracture repair Physicians Plan of Care Planned Activity Planned Date Details Comments Source Diagnostic Test 2018-03-26 [UTP] EMG [code = [facility] [place] Pending 00:00:00 [UTP] EMG] Physicians Diagnostic Test 2018-03-01 [UTP] EMG [code = [facility] [place] Pending 00:00:00 [UTP] EMG] Physicians Diagnostic Test 2018-03-01 [UTP] EMG [code = [facility] [place] Pending 00:00:00 [UTP] EMG] Physicians Encounters Start End Encounter Admission Attending Care Care Encounter Source Date/Time Date/Time Type Type Clinicians Facility Department ID 2021-04-05 2021-04-05 Letter MARIANNA Hahn [id number] Univers 00:00:00 00:00:00 (Out) Charlene SETHI [id number] it y of [facility] [id number] Venkat as [id number] [place] [address] Branch 2021-04-04 2021-04-04 Laboratory Only, Ang Db Test [facility] 1.2.8 [id number] [id number] Univers 12:51:16 13:06:16 [facility] [place] [facility] 350.1.13. 10 ity of [place] [id number] Venkat as José Miguel?Blea [id number] [address] Medical Office Building 2021-04-04 2021-04-04 Letter Doctor CABRAL [id number] Univers 00:00:00 00:00:00 (Out) UnassJOSSIE womack [id number] ity of [place] [facility] [id number] Venkat as [id number] [place] [address] Branch 2021-04-04 2021-04-04 Letter Doctor CABRAL [id number] Univers 00:00:00 00:00:00 (Out) Unassigned, JOSSIE [id number] [facility] [id number] Venkat as [phone] [address] 2019-05-13 2019-05-13 AppointTJ [facility] [id number] Univers 08:30:00 08:30:00 t; neva PIERCE [facility] catalina OGLESBY M.D. [facility] KARI Orthopedic Physi ci M.DClarita and Spine [facility] 2019-04-04 2019-04-04 AppointTJ [facility] [id number] Univers 11:00:00 11:00:00 t; CONNIE LOREDO, Trauma dorcas ROSALES M.D. [facility] 2019-03-21 2019-03-21 [facility] [id number] Univers 09:00:00 09:00:00 t; CONNIE LOREDO Trauma dorcas ROSALES M.D. [facility] 2019-02-28 2019-02-28 [facility] [id number] Univers 12:45:00 12:45:00 t; CONNIE LOREDO, Trauma dorcas ROSALES M.D. [facility] 2018-03-26 2018-03-26 AppointTJ Balderas [facility] [id number] Univers 08:30:00 08:30:00 t; CHARLES RON ity of KRISTIN, M.D. [facility] 2018-03-01 2018-03-01 [facility] [id number] Univers 09:00:00 09:00:00 t; ELODIA HERNANDES ity of AUDREY, P.A. [place] [facility] 2017-11-16 2017-11-16 [facility] [id number] Univers 09:30:00 09:30:00 t; ELODIA HERNANDES ity of [place], P.A. [place] P.A. Physici ans 2017-10-19 2017-10-19 Appointmen FACUNDO [facility] [id number] Univers 10:00:00 10:00:00 t; CONNIE LOREDO ity o f JOSHUA, M.D. [place] [facility]ici ans 2017-07-27 2017-07-27 Appointmen GRETA [facility] Orthopedics [id number] Univers 09:00:00 09:00:00 t; ELODIA HERNANDES ity of [place], P.A. [place] P.A. Physici ans 2017-06-01 2017-06-01 Appointmen TJ LOREDO [facility] [id number] Univers 10:30:00 10:30:00 t; CONNIE LOREDO ity o f JOSHUA, M.D. [facility] 2017-06-01 2017-06-01 Appointmen [facility] [id number] Univers 09:00:00 09:00:00 t; ELODIA HERNANDES ity of [place], P.A. [place] P.A. Physici ans 2017-05-29 2017-05-29 Appointmen DANIEL [facility] Plastic [id number] Univers 10:30:00 10:30:00 t; [place] TILLEY Surgery it y of TREVA Watts Physici M.D. ans 2017-05-23 2017-05-23 Appointmen TJ CARLOS [facility] [id number] Univers 09:45:00 09:45:00 t; CARRIE CARLOS Orthopedics ity of [place] BUTLER M.D. Physici ans 2017-05-16 2017-05-16 Appointmen TANIYA [facility] Neurology [id number] Univers 13:00:00 13:00:00 t; MARY MONAHAN it y of [place] HERNANDEZ M.D. Physici ans 2017-05-10 2017-05-10 Appointmen DANIEL [facility] [id number] Univers 13:00:00 13:00:00 t; [place] TILLEY it y of TREVA Watts Physici M.D. ans 2017-05-08 2017-05-08 Appointmen [place], [facility] UTP [id number] Univers 09:50:00 09:50:00 t; [place] TILLEY y of [place] TREVA Rivera Physici M.D. ans 2017-05-01 2017-05-01 Appointmen [place], [facility] UTP [id number] Univers 09:50:00 09:50:00 t; [place] TILLEY y [facility] TREVA Rivera Physici M.D. ans 2017-04-25 2017-04-25 Appointmen BREANNA, [facility] UTP [id number] Univers 14:15:00 14:15:00 t; CARRIE CARLOS it y of [place] BUTLER M.D. Physicalexandra ans 2017-04-24 2017-04-24 Appointmen [place], [facility] UTP [id number] Univers 10:10:00 10:10:00 t; [place] TILLEY y [facility] TREVA Rivera Physici M.D. ans 2017-04-20 2017-04-20 Appointmen FACUNDO, [facility] UTP [id number] Univers 11:45:00 11:45:00 t; CONNIE LOREDO ity o f JOSHUA, M.D. [place] M.D. Physici ans 2017-04-20 2017-04-20 Appointmen KELVIN, [facility] UTP [id number] Univers 10:00:00 10:00:00 t; CANDIDO WARREN P.A. ity [place], [place] [facility] Results Test Description Test Time Test Comments Results Result Sourc e Comments [U] XRAY HIP 2019-05-13 Images University o f UNILATERAL MIN 2 10:22:00 acquired, not [place] VWS RIGHT [id number] reported on Physicia ns this accession number. [U] XRAY PELVIS 2019-04-04 Images Universit y of MIN 3 [id number] [id number] 10:38:00 acquired, not [place] reported on Physicians this accession number. [U] XRAY PELVIS 2018-03-01 Images Universit y of MIN 3 [id number] [id number] 09:00:00 acquired, not [place] reported on Physicians this accession number. [U] XRAY PELVIS 2017-07-27 Images Universit y of MIN 3 VWS [id number] 09:14:00 acquired, not [place] reported on Physicians this accession number. [U] XRAY PELVIS 2017-04-20 Images Universit y of MIN 3 [id number] [id number] 10:54:00 acquired, not [place] reported on Physicians this accession number.
[2021-08-19 19:20] LABS: Absolute Lymphocytes (CBC) 1.6 K/uL (0.7-4.9); Hematocrit 40.7 % (39.6-49.0); Lymphocytes % 22.4 % (15.3-44.8); RBC Red Blood Cell Count 4.43 M/uL (4.33-5.43)
[2021-08-19 19:23] LABS: Protime INR 0.95
[2021-08-19 19:26] LABS: Potassium 3.6 mmol/L (3.5-5.1); Sodium Level 143 mmol/L (136-145)
[2021-08-19 19:41] LABS: ALT/SGPT 38 U/L (12-78); AST/SGOT 22 U/L (15-37); Albumin 3.7 g/dL (3.4-5.0); Alkaline Phosphatase 58 U/L (45-117); BUN Blood Urea Nitrogen 16 mg/dL (7-18); Bicarbonate 27 mmol/L (21-32); Bilirubin Total 0.2 mg/dL (0.2-1.0); Glucose Level 109 mg/dL (74-106); Protein, Total 7.3 g/dL (6.4-8.2)
[2021-08-19 19:45] LABS: Bilirubin Direct < 0.1 mg/dL (0-0.2)
[2021-08-19 19:48] LABS: Urine Blood Trace-lysed (Negative); Urine Glucose Negative (Negative); Urine Protein Negative (Negative); Urine Specific Gravity 1.015 (1.005-1.030)
--- NOTE | 2021-08-19 19:48 | ER ---
Nurse's Notes [facility] Name: Kamlesh Fitzpatrick Age: 41 yrs Sex: Male : 1980 Arrival Date: 08/19/2021 Time: 18:36 Bed 17 Private MD: Diagnosis: Allergy, unspecified Presentation: 08/19 18:37 Chief complaint: Patient states: Report received EMS, Patient received via stretcher, ag7 alert and awake, erythema noted to the face, allergic reaction reported by EMS, unknown exposure. Patient is rambling thoughts spontaneously. Coronavirus screen: Client denies travel out of the [place] in the last 14 days. At this time, the client does not indicate any symptoms associated with coronavirus-19. Ebola Screen: No symptoms or risks identified at this time. Initial Sepsis Screen: Does the patient meet any 2 criteria? No. Patient's initial sepsis screen is negative. Does the patient have a suspected source of infection? No. Patient's initial sepsis screen is negative. Risk Assessment: Do you want to hurt yourself or someone else? Patient reports no desire to harm self or others. Onset of symptoms was August 19, 2021. 18:37 Method Of Arrival: EMS: [facility] ag7 18:37 Acuity: JEANNINE 4 ag7 Triage Assessment: 19:00 General: Appears uncomfortable, Behavior is agitated, anxious, inappropriate for age, vc1 uncooperative. Pain: Complains of pain in "all over" Pain does not radiate. Neuro: Level of Consciousness is awake, alert. Cardiovascular: Denies chest pain, Capillary refill < 3 seconds Patient's skin is warm and dry. Respiratory: Airway is patent Respiratory effort is even, unlabored, Respiratory pattern is regular, symmetrical. Derm: Skin is flushed. Historical: - Allergies: 19:00 Iodine; vc1 19:00 PENICILLINS; vc1 19:00 SHELL FISH; vc1 - Home Meds: 19:00 citalopram oral [Active]; Wellbutrin Oral [Active]; vc1 - Immunization history:: Adult Immunizations up to date, Client reports having NOT received the Covid vaccine. - Social history:: Smoking status: Patient reports the use of cigarette tobacco products, denies chronic smoking, but will smoke occasionally. Screenin:30 Abuse screen: Denies threats or abuse. Nutritional screening: No deficits noted. vc1 Tuberculosis screening: No symptoms or risk factors identified. Fall Risk No fall in past 12 months (0 pts). No secondary diagnosis (0 pts). IV access (20 points). Ambulatory Aid- None/Bed Rest/Nurse Assist (0 pts). Gait- Impaired (20 pts.). Mental Status- Overestimates/Forgets Limitations (15 pts.). Total Bradshaw Fall Scale indicates High Risk Score (45 or more points). Placed Close to Nursing Station Frequent Obs/Assessments Occuring Family Present and informed to notify staff if the need to leave the bedside. Assessment: 19:00 Reassessment: See triage assessment. vc1 19:45 Reassessment: Patient stated, "I'm better off ". vc1 19:50 General: Appears uncomfortable, Behavior is inappropriate for age, restless, vc1 uncooperative, Smells of alcohol. Pain: Complains of pain in "whole body" Pain does not radiate. Neuro: Level of Consciousness is awake, alert, Oriented to person, place, situation. Cardiovascular: Patient's skin is warm and dry. Vital Signs: 18:37 BP 163 / 106; Pulse 86 LA; Resp 20 S; Temp 97.9(O); Pulse Ox 95% on R/A; Pain 0/10; ag7 19:30 BP 144 / 85; Pulse 91; Resp 20; Pulse Ox 93% on R/A; vc1 ED Course: 18:36 Patient arrived in ED. aa5 18:37 Alysa Villela, RN is Primary Nurse. ag7 18:38 Alex Tucker PA is PHCP. cp 18:38 Rober Feng DO is Attending Physician. cp 18:44 Triage completed. ag7 19:00 Arm band placed on right wrist. vc1 19:30 Patient has correct armband on for positive identification. Placed in gown. vc1 19:55 No provider procedures requiring assistance completed. IV discontinued, intact, vc1 bleeding controlled, No redness/swelling at site. Pressure dressing applied. 19:58 Primary Nurse role handed off by Alysa Villela, RN vc1 19:58 Aleida Castro, DANIEL is Primary Nurse. vc1 Administered Medications: 08/20 04:33 Not Given (Patient Refused): SOLU-Medrol (methylPrednisoLONE) 125 mg IVP once vc1 04:33 Not Given (Patient Refused): Pepcid (famotidine) 20 mg IVP once; dilute with 10 mL 0.9% vc1 NaCl; give over 2 minutes 04:33 Not Given (Patient Refused): NS 0.9% 1000 ml IV at 1 bolus Per protocol; 1000 mL bolus vc1 Outcome: 08/19 19:47 Discharge ordered by . cp 19:55 Discharged to Law Enforcement vc1 19:55 Condition: stable 19:55 Demonstrated understanding of being medically cleared to leave with Law Enforcement officers 19:58 Patient left the ED. vc1 Signatures: Leighann Matias RN RN aa5 Alex Tucker PA PA cp Calcote, Vanessa, RN RN vc1 Alysa Villela RN RN ag7 Corrections: (The following items were deleted from the chart) 19:00 18:37 Chief complaint: Patient states: Report received EMS, Patient received via ag7 stretcher, alert and awake, erythema noted to the face, allergic reaction reported by EMS, unknown exposure. ag7
--- NOTE | 2021-08-19 19:48 | EDPHYS ---
Physician Documentation [facility] Name: Kamlesh Fitzpatrick Age: 41 yrs Sex: Male : 1980 Arrival Date: 08/19/2021 Time: 18:36 Bed 17 Private MD: ED Physician Rober Feng HPI: 08/19 18:45 This 41 yrs old Male presents to ER via EMS with complaints of Allergic Rash. cp 18:45 The patient presents with rash, of the face and chest. cp 18:45 Onset: The symptoms/episode began/occurred today. cp 18:45 Associated signs and symptoms: Pertinent negatives: abdominal pain, Altered mental cp status chest pain, fever, vomiting. Possible causes: The patient has no known obvious cause for the symptoms. Patient presents to ED via EMS in custody of law enforcement with concern for allergic hives. Historical: - Allergies: 19:00 Iodine; vc1 19:00 PENICILLINS; vc1 19:00 SHELL FISH; vc1 - Home Meds: 19:00 citalopram oral [Active]; Wellbutrin Oral [Active]; vc1 - Immunization history:: Adult Immunizations up to date, Client reports having NOT received the Covid vaccine. - Social history:: Smoking status: Patient reports the use of cigarette tobacco products, denies chronic smoking, but will smoke occasionally. ROS: 18:50 Skin: Positive for rash, of the face and chest. cp 18:50 Constitutional: Negative for body aches, chills, fever. cp 18:50 Cardiovascular: Negative for chest pain, palpitations. cp 18:50 Eyes: Negative for injury, pain, redness, and discharge. cp 18:50 ENT: Negative for drainage from ear(s), ear pain, sore throat, difficulty swallowing, difficulty handling secretions. 18:50 Respiratory: Negative for cough, shortness of breath, wheezing. 18:50 Abdomen/GI: Negative for abdominal pain, nausea, vomiting, and diarrhea. 18:50 Neuro: Negative for altered mental status, headache, weakness. 18:50 All other systems are negative. Exam: 18:55 Constitutional: The patient appears in no acute distress, alert, awake, cp non-diaphoretic, non-toxic, well developed, well nourished. 18:55 Head/Face: Normocephalic, atraumatic. cp 18:55 Eyes: Periorbital structures: appear normal, Conjunctiva: normal, no exudate, no injection, Lids and lashes: appear normal, bilaterally. 18:55 ENT: External ear(s): are unremarkable, Nose: is normal, Mouth: Lips: moist, Oral mucosa: moist, Posterior pharynx: Airway: no evidence of obstruction, patent. 18:55 Neck: ROM/movement: is normal, is supple, without pain, no range of motions limitations. 18:55 Chest/axilla: Inspection: rash, of the upper chest 18:55 Cardiovascular: Rate: normal, Rhythm: regular. 18:55 Respiratory: the patient does not display signs of respiratory distress, Respirations: normal, no use of accessory muscles, no retractions, labored breathing, is not present, Breath sounds: are clear throughout, no decreased breath sounds, no stridor, no wheezing. 18:55 Abdomen/GI: Inspection: abdomen appears normal, Palpation: abdomen is soft and non-tender, in all quadrants. 18:55 Neuro: Orientation: to person, place \T\ time. Mentation: is normal, Motor: moves all fours, strength is normal. 18:55 Psych: Behavior/mood is aggressive, uncooperative, Judgement / Insight is impaired. Delusions/hallucinations are not present. 19:20 ECG was reviewed by the Attending Physician. cp Vital Signs: 18:37 BP 163 / 106; Pulse 86 LA; Resp 20 S; Temp 97.9(O); Pulse Ox 95% on R/A; Pain 0/10; ag7 19:30 BP 144 / 85; Pulse 91; Resp 20; Pulse Ox 93% on R/A; vc1 MDM: 18:38 Patient medically screened. cp 19:00 Differential diagnosis: anaphylaxis, angioedema, urticaria. cp 19:46 Data reviewed: vital signs, nurses notes, EKG. cp 19:46 Counseling: I had a detailed discussion with the patient and/or guardian regarding: the cp historical points, exam findings, and any diagnostic results supporting the discharge/admit diagnosis, to return to the emergency department if symptoms worsen or persist or if there are any questions or concerns that arise at home. ED course: VSS. Patient uncooperative and reportedly in custody of law enforcement for alcohol intoxication. Patient reports threats to harm self and others. Patient medically cleared and will be discharged into custody of law enforcement for continued monitoring. 08/19 18:39 Order name: Acetaminophen cp 08/19 18:39 Order name: Basic Metabolic Panel cp 08/19 18:39 Order name: CBC with Diff; Complete Time: 04:27 cp 08/19 18:39 Order name: ETOH Level; Complete Time: 04:27 cp 08/20 04:27 Interpretation: Reviewed. cp 08/19 18:39 Order name: Hepatic Function; Complete Time: 04:27 cp 08/19 18:39 Order name: PT-INR; Complete Time: 04:27 cp 08/19 18:39 Order name: Ptt, Activated; Complete Time: 04:27 cp 08/19 18:39 Order name: Salicylate; Complete Time: 04:27 cp 08/19 18:39 Order name: Urine Drug Screen; Complete Time: 04:27 cp 08/19 18:39 Order name: Acetaminophen Level; Complete Time: 04:27 EDMS 08/19 18:39 Order name: Basic Metabolic Panel; Complete Time: 04:27 EDMS 08/20 04:28 Interpretation: Normal except: CL 110; GLUC 109; GFR 83; CA 7.9. cp 08/19 19:47 Order name: Urine Dipstick-Ancillary; Complete Time: 04:27 EDMS 08/19 18:38 Order name: IV; Complete Time: 04:33 cp 08/19 18:39 Order name: EKG; Complete Time: 18:40 cp 08/19 18:39 Order name: EKG - Nurse/Tech; Complete Time: 04:32 cp 08/19 18:39 Order name: Labs collected and sent; Complete Time: 04:32 cp 08/19 18:39 Order name: Urine Dipstick-Ancillary (obtain specimen); Complete Time: 04:32 cp EC:20 Rate is 78 beats/min. Rhythm is regular. NM interval is normal. QRS interval is normal. cp QT interval is normal. T waves are Inverted in lead aVR. Interpreted by me. Reviewed by me. Administered Medications: 08/20 04:33 Not Given (Patient Refused): SOLU-Medrol (methylPrednisoLONE) 125 mg IVP once vc1 04:33 Not Given (Patient Refused): Pepcid (famotidine) 20 mg IVP once; dilute with 10 mL 0.9% vc1 NaCl; give over 2 minutes 04:33 Not Given (Patient Refused): NS 0.9% 1000 ml IV at 1 bolus Per protocol; 1000 mL bolus vc1 Disposition: 08/19 20:48 Co-signature as Attending Physician, Rober Feng DO I was present in the Emergency ms3 Department for consultation. . Disposition Summary: 08/19/21 19:47 Discharge Ordered Location: Home cp Problem: new cp Symptoms: have improved cp Condition: Stable cp Diagnosis - Allergy, unspecified cp Followup: cp - With: Private Physician - When: 2 - 3 days - Reason: Recheck today's complaints Discharge Instructions: - Discharge Summary Sheet cp - Hives cp Forms: - Medication Reconciliation Form cp - Thank You Letter cp - Antibiotic Education cp - Prescription Opioid Use cp Prescriptions: - Prednisone 20 mg Oral Tablet - take 2 tablets by ORAL route once daily for 5 days; 10 tablet; Refills: 0, cp Product Selection Permitted Signatures: Dispatcher [employer] EDMN Alex Tucker PA PA cp Sims, Marcus, DO DO ms3 Aleida Castro RN RN vc1
[2021-08-19 20:02] VITALS: BP 163/106; TEMP 97.9; O2SAT 95
[2021-08-19 20:52] LABS: Barbiturates NEGATIVE (NEGATIVE); Benzodiazepines NEGATIVE (NEGATIVE); Cocaine NEGATIVE (NEGATIVE); METHAMPHETAM NEGATIVE (NEGATIVE); Methadone NEGATIVE (NEGATIVE); Opiates NEGATIVE (NEGATIVE); Phencyclidine NEGATIVE (NEGATIVE); THC Cannibis NEGATIVE (NEGATIVE)
--- NOTE | 2021-08-20 13:10 | EKG ---
Test Date: 2021-08-19 Test Time: 19:14:20 Tax Associate: TAMMY MEASUREMENT RESULTS: Intervals: Rate: 78 WV: 144 QRSD: 82 QT: 400 QTc: 456 Leopold: P: 62 WV: 144 QRS: 52 T: 26 INTERPRETIVE STATEMENTS: Normal sinus rhythm Cannot rule out Anterior infarct, age undetermined Abnormal ECG Compared to ECG 02/20/2019 23:06:31 No significant changes Electronically Signed On 08-20-21 13:08:06 CONTRACT POST OFFICE CLERK by José Manuel Padron
== END 2021-08-19 19:58 | disposition home or self-care (01) ==
LOC: ER 18:31
DX: R21 Rash and other nonspecific skin eruption (principal); Z91.09 Other allergy status, other than to drugs and biological substances; F17.210 Nicotine dependence, cigarettes, uncomplicated; Z88.0 Allergy status to penicillin; Z91.013 Allergy to seafood; Z91.048 Other nonmedicinal substance allergy status
CPT/HCPCS: 36415; 80048; 80076; 80307; 80320; 80329; 81003; 85025; 85610; 85730; 93005; 99283